=== PATIENT | female | born 1985 | race Two or more races ===

== ENCOUNTER 2024-05-06 01:06 | Inpatient (IN) | payer OTHER ==
[2024-05-06] VITALS (31 sets, daily range): BP systolic 83–153; BP diastolic 38–99; PULSE 90–124; RESP 16–27; TEMP 98.2–100.2; O2SAT 97–100
[~2024-05-06] VITALS: Ht 162.6 cm; Wt 64.0 kg
--- NOTE | 2024-05-06 01:20 | ED.PDOC ---
History of present illness HPI Comments 39 year old female brought in by EMS presents to the ED with a chief complaint of hyperglycemia onset 2 days. Per EMS, patient's family called EMS due to knowing patient has "problem with her blood sugar" but were unsure if it was low or high. Upon EMS arrival patient's BS was 600, BP was 74 systolic. Patient states she has been experiencing nausea/vomiting for the past 2 days, loss of appetite and increased thirst, and has not taken her DM medication. PMHx DM and denies chest pain, shortness of breath, diarrhea, constipation, headache, dizziness, blurry vision. No other symptoms or modifying factors present at this time. 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 Family History Family History: Unknown Social History Smoker: Non-Smoker Alcohol: Denies ETOH Use Drugs: Denies Drug Use Lives In: Home Constitutional: denies: chills, diaphoresis, fatigue, fever, malaise, sweats, weakness, others EENTM: denies: blurred vision, double vision, ear bleeding, ear discharge, ear drainage, ear pain, ear ringing, eye pain, eye redness, hearing loss, mouth pain, mouth swelling, nasal discharge, nose bleeding, nose congestion, nose pain, photophobia, tearing, throat pain, throat swelling, voice changes, others Respiratory: denies: cough, hemoptysis, orthopnea, SOB at rest, shortness of breath, SOB with excertion, stridor, wheezing, others Cardiovascular: denies: chest pain, dizzy spells, diaphoresis, Dyspnea on exertion, edema, irregular heart beat, left arm pain, lightheadedness, palpitations, PND, syncope, others Gastrointestinal: reports: nausea, vomiting; denies: abdomen distended, abdominal pain, blood streaked bowels, constipated, diarrhea, dysphagia, difficulty swallowing, hematemesis, melena, poor appetite, poor fluid intake, rectal bleeding, rectal pain, others Genitourinary: denies: abnormal vagina bleeding, burning, dyspareunia, dysuria, flank pain, frequency, hematuria, incontinence, pain, , vagina discharge, urgency, others Neurological: denies: dizziness, fainting, headache, left sided numbness, left sided weakness, numbness, paresthesia, pre-existing deficit, right sided numbness, right sided weakness, seizure, speech problems, tingling, tremors, weakness, others Musculoskeletal: denies: back pain, gout, joint pain, joint swelling, muscle pa in, muscle stiffness, neck pain, others Integumetry: denies: bruises, change in color, change in hair/nails, dryness, laceration, lesions, lumps, rash, wounds, others Allergic/Immunocompromised: denies: Difficulty Healing, Frequent Infections, Hives, Itching, others Hematologic/Lymphatic: denies: anemia, blood clots, easy bleeding, easy bruising, swollen glands, others Endocrine: reports: excessive thirst; denies: excessive hunger, excessive sweating, excessive urination, flushing, intolerance to cold, intolerance to heat, unexplained weight gain, unexplained weight loss, others Psychiatric: denies: anxiety, bipolar disorder, depression, hopeless, panic disorder, schizophrenia, sleepless, suicidal, others All Other Systems: Reviewed and Negative Physical Exam General Appearance: No Apparent Distress, Normal HEENT: Normal ENT Inspection, Pharynx Normal, TMs Normal Neck: Full Range of Motion, Non-Tender, Normal, Normal Inspection Respiratory: Chest Non-Tender, Lungs Clear, No Accessory Muscle Use, No Respiratory Distress, Normal Breath Sounds Cardiovascular: No Edema, No JVD, No Murmur, No Gallop, Normal Peripheral Pu lses, Regular Rate/Rhythm Breast Exam: Deferred Gastrointestinal: No Organomegaly, Non Tender, No Pulsatile Mass, Normal Bowel Sounds, Soft Genitalia: Deferred Pelvic: Deferred Rectal: Deferred Extremities: No calf tenderness, Normal capillary refill, Normal inspection, Normal range of motion, Non-tender, No pedal edema Musculoskeletal : Apperance: Normal Neurologic: Alert, sdet II-XII nml as Tested, No Motor Deficits, Normal Affect, Normal Mood, No Sensory Deficits Cerebellar Function: Normal Reflexes: Normal Skin: Dry, Normal Color, Warm Lymphatic: No Adenopathy Was a procedure done? 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 Occupation of last inserter: Attending Physician Indication: Hypotension, Volume resuscitation Room prepared for procedure: Yes Truck Supervisor performed hand hygien: Yes Maximal sterile barrier precau: Mask/Eye shield, Sterlie gloves, Large sterlie drape Skin Preparation: Chlorhexidine gluconate Skin preparation completely dr: Yes Insertion site: Right, Femoral Central line catheter type: Oik-[id number]-swc dialysis Number of lumens: 3 Central line exchanged over a: Yes Antiseptic ointment applied to: Yes Post Assessment: Proper placement Informed consent obtained: No Risks/benefits/alt described: No Intubation Indication: Altered Mental Status Prep: Preoxygenation Pretreated with: Other (Etomidate) Medicated with: Other (Rocuronium) Intubation Approach: Orotracheal Intubation size: cm (8) Informed consent obtained: No Risks/benefits/alt described: No Differential Diagnosis (DM) Differential Diagnosis: Dehydration, DKA, Encephalopathy, Hyperglycemia, Hyperosmolar State X-Ray, Labs, Meds, VS Vital Signs Date Time Temp Pulse Resp B/P (MAP) Pulse Ox O2 Delivery O2 Flow Rate FiO2 05/06/24 02:55 103 16 100 80 05/06/24 01:33 96.3 90 19 71/36 (48) 98 96.3 05/06/24 01:33 90 19 98 Room Air* 0 21 05/06/24 01:20 76 05/06/24 01:13 97.6 87 22 74/42 (53) 97 05/06/24 01:09 91 Lab Test 05/06/24 01:26 05/06/24 01:25 Range/Units White Blood Count 13.3 H 4.4-10.8 10^3/uL Red Blood Count 3.60 L 4.0-5.20 10^6/uL Hemoglobin 9.7 L 12.2-16.2 g/dL Hematocrit 32.8 L 36.0-46.0 % Mean Corpuscular Volume 91.2 80.0-100.0 fL Mean Corpuscular Hemoglobin 26.9 L 28.0-32.0 pg Mean Corpuscular Hemoglobin Concent 29.5 L 32.0-36.0 g/dL Red Cell Distribution Width 14.8 H 11.8-14.3 % Platelet Count 334 140-450 10^3/uL Mean Platelet Volume 10.2 6.9-10.8 fL Neutrophils (%) (Auto) 77.7 37.0-80.0 % Lymphocytes (%) (Auto) 13.5 10.0-50.0 % Monocytes (%) (Auto) 8.0 0.0-12.0 % Eosinophils (%) (Auto) 0.0 0.0-7.0 % Basophils (%) (Auto) 0.8 0.0-2.0 % Neutrophils # (Auto) 10.3 H 1.6-8.6 10 ^3/uL Lymphocytes # (Auto) 1.8 0.4-5.4 10 ^3/uL Monocytes # (Auto) 1.1 0-1.3 10 ^3/uL Eosinophils # (Auto) 0 0-0.8 10 ^3/uL Basophils # (Auto) 0.1 0-0.2 10 ^3/uL Nucleated Red Blood Cells 0.0 % Sodium Level 110 *L 136-145 mmol/L Potassium Level 6.2 *H 3.5-5.1 mmol/L Chloride Level 77 L 98-107 mmol/L Carbon Dioxide Level < 10 *L 20-31 mmol/L Anion Gap 23.66193 H 5-15 Blood Urea Nitrogen 48 H 9-23 mg/dL Creatinine 4.14 H 0.550-1.02 mg/dL Glomerular Filtration Rate Calc 14 >90 mL/min BUN/Creatinine Ratio 11.6 10.0-20.0 Serum Glucose 1096 *H 74-106 mg/dL Lactic Acid Level 1.5 0.4-2.0 mmol/L Calcium Level 9.2 8.7-10.4 mg/dL Phosphorus Level 7.9 H 2.4-5.1 mg/dL Magnesium Level 2.3 1.6-2.6 mg/dL Total Bilirubin < 0.2 L 0.2-1.0 mg/dL Aspartate Amino Transferase (AST) 17 13-40 U/L Alanine Aminotransferase (ALT) 19 7-40 U/L Alkaline Phosphatase 149 H 46-116 U/L Total Protein 6.0 5.7-8.2 g/dL Albumin 3.5 3.2-4.8 g/dL Lipase 27 12-53 U/L Beta-Hydroxybutyric Acid > 4.500 H < 0.4 mmol/L Blood Gas Specimen Type Venous Blood Gas Sample Site Vbg - n/a Blood Gas Patient Temperature 37.0 Arterial Blood Date Drawn Tom Test N/a Venous Blood pH 7.054 *L 7.320-7.430 Venous Blood pCO2 at Patient Temp 15.4 L 38.0-54.0 mmHg Venous Blood pO2 at Patient Temp 48.7 H 23.0-48.0 mmHg Venous Blood HCO3 4.2 L 22.0-29.0 mmol/L Venous Blood Base Excess -24.2 L -2.0-3.0 mmol/L Blood Gas Modality Vbg - n/a FiO2 % 21.0 Specimen Drawn By Ying decker rn Blood Gas Critical Value Read Back Yes Blood Gas Notified Whom Priscilla kim md Blood Gas Notified Time Blood Gas Notified By Shahida segal Current Medications Medications (Trade) Dose Ordered Sig/Tera Route Start Time Stop Time Status Last Admin Sodium Chloride 1,000 ml @ 1,000 mls/hr Q1H ONCE IV 05/06/24 01:15 05/06/24 02:14 DC 05/06/24 01:32 Ondansetron HCl (Zofran) 4 mg ONCE ONCE IV 05/06/24 01:15 05/06/24 01:16 DC 05/06/24 01:41 Famotidine (Pepcid Injection) 20 mg ONCE ONCE IV 05/06/24 01:15 05/06/24 01:16 DC 05/06/24 01:41 Sodium Chloride 1,000 ml @ 1,000 mls/hr Q1H ONCE IV 05/06/24 01:45 05/06/24 02:44 DC 05/06/24 01:42 Lactated Ringer's 2,000 ml @ 1,000 mls/hr Q2H ONCE IV 05/06/24 02:15 05/06/24 04:14 05/06/24 02:28 Time of 1ST Reevaluation: 01:41 Reevaluation 1ST: Unchanged Patient Education/Counseling: Diagnosis, Treatment, Prognosis Family Education/Counseling: No Family Present Additional Information The following tests were ordered, and results were reviewed by me: CBC, CMP, BETA-HYDROXYBUTYRATE, LA W/ REFLEX, LIPASE, UA, XY CHEST, VBG Additional Information was gathered from interviewing the following independent historians: EMS I reviewed and agreed with the following test results read by other providers: XY CHEST I discussed treatment and results with medical personnel and patient Departure 1 Departure Time of Disposition: 03:10 (Patient was in DKA with metabolic encephalopathy. Patient was emergently intubated for altered mental status and airway protection. Central line was placed. Patient receiving large volume fluid re suscitation we will start patient on insulin drip.) Impression: Primary Impression: DKA (diabetic ketoacidosis) Qualified Codes: E11.11 - Type 2 diabetes mellitus with ketoacidosis with coma Additional Impressions: Metabolic encephalopathy Dehydration Disposition: ADMITTED INPATIENT Admit to: ICU Condition: Critical Critical Care Note Critical Care Time?: Yes Critical care comment: Acute DKA Authorized and Performed by: Grace Zaman MD Total critical care time: Approximately 48 minutes Due to a high probability of clinically significant, life threatening deterioration, the patient required my highest level of preparedness to intervene emergently and I personally spent this critical care time directly and personally managing the patient. This critical care time included obtaining a history; examining the patient; pulse oximetry; ordering and review of studies; arranging urgent treatment with development of a management plan; evaluation of patient's response to treatment; frequent reassessment; and, discussions with other providers. This critical care time was performed to assess and manage the high probability of imminent, life-threatening deterioration that could result in multi-organ failure. It was exclusive of separately billable procedures and treating other patients and teaching time. Please see my other sections and the rest of the note for further information on patient assessment and treatment. Stability Stability form required: No I personally scribed for GRACE ZAMAN MD ([email or web address]) on 05/06/24 at 01:20. Electronically submitted by Patricia Quezada ([email or web address]). I personally scribed for GRACE ZAMAN MD ([email or web address]) on 05/06/24 at 01:21. Electronically submitted by Patricia Quezada ([email or web address]). GRACE ZAMAN MD May 06, 2024 01:20
[2024-05-06] MEDS: SODIUM CHLORIDE 0.9% 1,000 ML IV ONE ×2 (01:32→01:42)
[2024-05-06] MEDS: ONDANSETRON HCL 4 MG/2 ML VIAL IV ONE (01:41)
[2024-05-06] MEDS: FAMOTIDINE (10MG/ML) 2ML VL IV ONE (01:41)
[2024-05-06 01:44] LABS: Basophils # (auto) 0.1 10 ^3/uL (0-0.2); Eosinophils # (auto) 0 10 ^3/uL (0-0.8)
[2024-05-06 01:46] LABS: Basophils % (auto) 0.8 % (0.0-2.0); Hematocrit 32.8 % (36.0-46.0); Hemoglobin 9.7 g/dL (12.2-16.2); Lymphocytes # (auto) 1.8 10 ^3/uL (0.4-5.4); Lymphocytes % (auto) 13.5 % (10.0-50.0); Mean Corpuscular Hemoglobin 26.9 pg (28.0-32.0); Mean Corpuscular Hgb Conc. 29.5 g/dL (32.0-36.0); Mean Corpuscular Volume 91.2 fL (80.0-100.0); Monocytes # (auto) 1.1 10 ^3/uL (0-1.3); Neutrophils # (auto) 10.3 10 ^3/uL (1.6-8.6); Neutrophils % (auto) 77.7 % (37.0-80.0); Platelet Count (auto) 334 10^3/uL (140-450); Red Cell Distribution Width 14.8 % (11.8-14.3); White Blood Cell 13.3 10^3/uL (4.4-10.8)
[2024-05-06 02:01] LABS: Alanine Aminotransferase 19 U/L (7-40); Albumin 3.5 g/dL (3.2-4.8); Anion Gap 23.00001 (5-15); Aspartate Aminotransferase 17 U/L (13-40); BUN/Creatinine Ratio 11.6 (10.0-20.0); Calcium 9.2 mg/dL (8.7-10.4); Lipase 27 U/L (12-53); Magnesium 2.3 mg/dL (1.6-2.6)
[2024-05-06 02:11] LABS: Chloride 77 mmol/L (98-107)
[2024-05-06 02:12] LABS: Alkaline Phosphatase 149 U/L (46-116); Blood Urea Nitrogen 48 mg/dL (9-23); Phosphorus 7.9 mg/dL (2.4-5.1); Sodium 110 mmol/L (136-145)
[2024-05-06 02:13] LABS: Bilirubin, Total < 0.2 mg/dL (0.2-1.0); Carbon Dioxide < 10 mmol/L (20-31); Glucose 1096 mg/dL (74-106); Potassium 6.2 mmol/L (3.5-5.1)
[2024-05-06] MEDS ORDERED: DEXTROSE (50%) 50ML SYRG IV PRN ×2 (02:15→03:30)
[2024-05-06] MEDS: NOREPINEPHRINE 8 MG/250ML KIT 250 ML IV ONE (02:22)
[2024-05-06] MEDS: LACTATED RINGER'S 2,000 ML IV ONE (02:28)
[2024-05-06] MEDS: ROCURONIUM 10MG/ML 10ML VIAL IV ONE ×2 (02:28→02:39)
[2024-05-06] MEDS: ETOMIDATE (2MG/ML) 20ML VIAL IV ONE ×2 (02:29→02:39)
[2024-05-06] MEDS: PROPOFOL 100 ML IV SCH (02:45)
[2024-05-06] MEDS ORDERED: ACETAMINOPHEN 325 MG TAB PO PRN (03:30)
[2024-05-06] MEDS ORDERED: NITROGLYCERIN 0.4 MG SL TAB SL PRN (03:30)
[2024-05-06] MEDS ORDERED: MORPHINE SULFATE INJ 2 MG/ml SYRG IV PRN (03:30)
--- NOTE | 2024-05-06 03:43 | DVH ---
Examination: CXRP Clinical Indication: S/P INTUBATION Comparison: None. Technique: Frontal radiographs of the chest were obtained. Findings: Lungs are clear and well expanded with no pulmonary infiltrate or pleural effusion. There is no pneumothorax. Endotracheal tube noted with its distal end located approximately 7.2 cm proximal to the oscar, need s advancement by at least approximately 3.5 cm. No evidence of cardiomegaly. Nasogastric tube noted with its distal end below left hemidiaphragm, possibly in stomach, however, th e tip is out of field of view. No acute osseous abnormality is seen. Impression: 1. No acute cardiopulmonary disease is seen. 2. Endotracheal tube noted with its distal end located approximately 7.2 cm proximal to the oscar, needs advancement by at least approximately 3.5 cm. 3. Nasogastric tube noted with its distal end below left hemidiaphragm, possibly in stomach, however , the tip is out of field of view. Electronically Signed 05/06/2024 03:42 Fifi Dallas
[2024-05-06] MEDS: INSULIN DRIP 100 UNIT/100ML 100 ML IV SCH ×4 (04:01→22:30)
--- NOTE | 2024-05-06 04:02 | DVHHP2 ---
History of Present Illness Reason for Visit: Hyperglycemia History of Present Illness 39-year-old female with a history of diabetes mellitus presents for evaluation of hyperglycemia. Patient was noted to be lethargic by family so EMS was called. On arrival patient's blood sugar was greater than 600 blood pressure in the 70s. Patient became progressively more confused in the emergency department requiring emergent intubation for airway protection. Past Medical History Diabetes mellitus Past Surgical History Unknown Family History Unknown Smoke: No ALCOHOL: none Drugs: None Lives: with Family Review of Systems Review of Systems Unable to complete review of systems patient is sedated and intubated. Allergies: Coded Allergies: NO KNOWN ALLERGIES (Unverified , 05/06/24) Medications Current Medications Medications Dose Ordered Sig/Tera Route Start Time Stop Time Status Last Admin Dose Admin Insulin Human (Reg)/Sodium Chloride 100 ml @ 0.5 mls/hr Q24H IV 05/06/24 02:30 Dextrose 50 ml UD PRN IV 05/06/24 02:15 Diagnostic Test (Pha) 1 strip Q90MIN 05/06/24 03:00 Insulin Glargine 15 units DAILY SC 05/07/24 10:00 Norepinephrine Bitartrate 250 ml @ 3.75 mls/hr Q24H IV 05/06/24 02:45 Propofol 100 ml @ 1.908 mls/ hr Q24H IV 05/06/24 02:45 Exam Vital Signs Vital Signs Date Time Temp Pulse Resp B/P (MAP) Pulse Ox O2 Delivery O2 Flow Rate FiO2 05/06/24 03:13 103 16 100 80 05/06/24 02:55 05/06/24 01:33 96.3 96.3 05/06/24 01:33 Room Air* 0 Exam Gen: 39-year-old female mild distress Skin: Warm, dry, normal color and texture, no rash. HEENT: Normocephalic atraumatic, mucous membranes moist and pink. Neck: Cervical and supraclavicular nodes normal without enlargement, trachea is midline, thyroid gland is normal without masses. Pulmonary: Intubated, diminished breath sounds Cardiac: Regular rate and rhythm. No murmur Abdomen: Soft, , nondistended, bowel sounds present all 4 quadrants, no guarding, no rigidity, no organomegaly. Extremities: No cyanosis, clubbing, no edema Neuro: Sedated Labs/Xrays Labs Test 05/06/24 01:26 05/06/24 01:25 Range/Units White Blood Count 13.3 H 4.4-10.8 10^3/uL Red Blood Count 3.60 L 4.0-5.20 10^6/uL Hemoglobin 9.7 L 12.2-16.2 g/dL Hematocrit 32.8 L 36.0-46.0 % Mean Corpuscular Volume 91.2 80.0-100.0 fL Mean Corpuscular Hemoglobin 26.9 L 28.0-32.0 pg Mean Corpuscular Hemoglobin Concent 29.5 L 32.0-36.0 g/dL Red Cell Distribution Width 14.8 H 11.8-14.3 % Platelet Count 334 140-450 10^3/uL Mean Platelet Volume 10.2 6.9-10.8 fL Neutrophils (%) (Auto) 77.7 37.0-80.0 % Lymphocytes (%) (Auto) 13.5 10.0-50.0 % Monocytes (%) (Auto) 8.0 0.0-12.0 % Eosinophils (%) (Auto) 0.0 0.0-7.0 % Basophils (%) (Auto) 0.8 0.0-2.0 % Neutrophils # (Auto) 10.3 H 1.6-8.6 10 ^3/uL Lymphocytes # (Auto) 1.8 0.4-5.4 10 ^3/uL Monocytes # (Auto) 1.1 0-1.3 10 ^3/uL Eosinophils # (Auto) 0 0-0.8 10 ^3/uL Basophils # (Auto) 0.1 0-0.2 10 ^3/uL Nucleated Red Blood Cells 0.0 % Sodium Level 110 *L 136-145 mmol/L Potassium Level 6.2 *H 3.5-5.1 mmol/L Chloride Level 77 L 98-107 mmol/L Carbon Dioxide Level < 10 *L 20-31 mmol/L Anion Gap 23.30102 H 5-15 Blood Urea Nitrogen 48 H 9-23 mg/dL Creatinine 4.14 H 0.550-1.02 mg/dL Glomerular Filtration Rate Calc 14 >90 mL/min BUN/Creatinine Ratio 11.6 10.0-20.0 Serum Glucose 1096 *H 74-106 mg/dL Lactic Acid Level 1.5 0.4-2.0 mmol/L Calcium Level 9.2 8.7-10.4 mg/dL Phosphorus Level 7.9 H 2.4-5.1 mg/dL Magnesium Level 2.3 1.6-2.6 mg/dL Total Bilirubin < 0.2 L 0.2-1.0 mg/dL Aspartate Amino Transferase (AST) 17 13-40 U/L Alanine Aminotransferase (ALT) 19 7-40 U/L Alkaline Phosphatase 149 H 46-116 U/L Total Protein 6.0 5.7-8.2 g/dL Albumin 3.5 3.2-4.8 g/dL Lipase 27 12-53 U/L Beta-Hydroxybutyric Acid > 4.500 H < 0.4 mmol/L Blood Gas Specimen Type Venous Blood Gas Sample Site Vbg - n/a Blood Gas Patient Temperature 37.0 Arterial Blood Date Drawn Tom Test N/a Venous Blood pH 7.054 *L 7.320-7.430 Venous Blood pCO2 at Patient Temp 15.4 L 38.0-54.0 mmHg Venous Blood pO2 at Patient Temp 48.7 H 23.0-48.0 mmHg Venous Blood HCO3 4.2 L 22.0-29.0 mmol/L Venous Blood Base Excess -24.2 L -2.0-3.0 mmol/L Blood Gas Modality Vbg - n/a FiO2 % 21.0 Specimen Drawn By Ying decker rn Blood Gas Critical Value Read Back Yes Blood Gas Notified Whom Priscilla kim md Blood Gas Notified Time Blood Gas Notified By Nursery Helper sienna segal Assessment/Plan Assessment/Plan Assessment Diabetic ketoacidosis Acute respiratory failure, intubated Severe dehydration Acute kidney injury Metabolic acidosis Plan Admit the patient to ICU to the hospitalist DKA protocol Monitor kidney function Continue treatment per orders Total critical care time excluding procedures performed 55 minutes Plan discussed with: Other My Orders Orders - [facility] Procedure Category Date Status Time Calcium Gluc PHA 05/06/24 In Process 1,000mg/50ml-Ns 03:30 Sodium Chloride 0.9% PHA 05/06/24 In Process 03:30 Sodium Chloride 0.9% PHA 05/06/24 In Process 09:30 Dextrose 50% Syringe PHA 05/06/24 In Process 03:30 Osmolality, Serum LAB 05/06/24 In Process 03:27 Admit ADMIT 05/06/24 Transmitted 03:27 Ondansetron Hcl PHA 05/06/24 In Process (Zofran) 03:30 Complete Blood Count LAB 05/07/24 Verified 04:00 Comprehensive LAB 05/07/24 Verified Metabolic Panel 04:00 Condition: Unstable PAT 05/06/24 In Process 03:27 Acetaminophen Tablet PHA 05/06/24 In Process (Tylenol Tablet) 03:30 Maintain Bed Rest PAT 05/06/24 In Process 03:27 Sequential PAT 05/06/24 In Process Compression Device Nitroglycerin PHA 05/06/24 In Process Sublingual (Ntrostat 03:30 Morphine Sulfate PHA 05/06/24 In Process Injection 03:30 Stat Ekg For Chest PAT 05/06/24 In Process Pain 03:27 Notify Of Changes PAT 05/06/24 In Process From Base 03:27 Lube Man For PAT 05/06/24 In Process 24 Hours 03:27 Emergency Dysrhythmia PAT 05/06/24 In Process Protocol 03:27 Rhythm Strips Once [facility] 05/06/24 In Process Every Shift 03:27 Oxygen By Nasal RT 05/06/24 Transmitted Cannula 03:27 Enoxaparin Sodium PHA 05/06/24 In Process (Lovenox) 10:00 Abg W/ Co-Ox RT 05/06/24 Logged 04:30 Date of Service: May 06, 2024 Billing Provider: JESSICA BOWEN Common Visit Codes: [id number] CARE 30-74 MIN JESSICA BOWEN May 06, 2024 04:02
[2024-05-06] MEDS: NOREPINEPHRINE 8 MG/250ML KIT 250 ML IV SCH (04:10)
[2024-05-06] MEDS: INSULIN LANTUS (GLARGINE) 1 /0.01ml (100units/ml) SC ONE (04:37)
[2024-05-06 04:40] LABS: Base Excess -29.7 mmol/L (-2.0-3.0)
[2024-05-06] MEDS: SODIUM CHLORIDE 0.9% 1,000 ML IV SCH ×2 (04:45→09:37)
[2024-05-06] MEDS: SODIUM BICARB 8.4% 50Meq/50ml SYR Vial IV ONE ×2 (04:45→06:42)
[2024-05-06] MEDS: CALCIUM GLUC 1,000mg/50ml-NS 50 ML IV ONE (04:45)
[2024-05-06] MEDS: ACCU-CHEK COMFORT CURVE STRIP VI SCH ×2 (05:21→07:30)
[2024-05-06] MEDS: fentaNYL Drip 2500mCg/250mlNS 250 ML IV SCH (06:25)
[2024-05-06] MEDS: fentaNYL Drip 2500mCg/250mlNS 250 ML IV ONE (06:35)
[2024-05-06 06:52] LABS: Anion Gap 21.00001 (5-15); Calcium 9.1 mg/dL (8.7-10.4)
[2024-05-06 06:57] LABS: BUN/Creatinine Ratio 10.6 (10.0-20.0)
[2024-05-06 06:59] LABS: Blood Urea Nitrogen 39 mg/dL (9-23); Chloride 87 mmol/L (98-107); Potassium 5.3 mmol/L (3.5-5.1)
[2024-05-06 07:01] LABS: Sodium 118 mmol/L (136-145)
[2024-05-06 07:02] LABS: Carbon Dioxide < 10 mmol/L (20-31)
[2024-05-06 07:08] LABS: Glucose 891 mg/dL (74-106)
[2024-05-06] MEDS ORDERED: ACETAMINOPHEN 650 MG RECT SUPP PR PRN (09:00)
[2024-05-06] MEDS: MIDAZOLAM DRIP 50 mg/50mL 50 ML IV SCH (09:05)
[2024-05-06] MEDS: SODIUM BICARB 50mEq/50ml Vial 100 ML in SOD CHL 0.45% 1,000 ML IV ONE (09:22)
[2024-05-06] MEDS: ENOXAPARIN SOD 30 MG/0.3 ML SYRINGE SC SCH (10:05)
[2024-05-06 10:38] LABS: Potassium 3.9 mmol/L (3.5-5.1)
[2024-05-06 10:39] LABS: Anion Gap 18 (5-15)
[2024-05-06 10:40] LABS: Calcium 9.1 mg/dL (8.7-10.4)
--- NOTE | 2024-05-06 10:43 | ECG ---
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
[2024-05-06 10:44] LABS: BUN/Creatinine Ratio 12.1 (10.0-20.0)
[2024-05-06 10:56] LABS: Blood Urea Nitrogen 44 mg/dL (9-23); Carbon Dioxide 15 mmol/L (20-31); Chloride 92 mmol/L (98-107); Sodium 125 mmol/L (136-145)
[2024-05-06 10:58] LABS: Glucose 687 mg/dL (74-106)
[2024-05-06 14:34] LABS: Anion Gap 13 (5-15); Chloride 99 mmol/L (98-107); Potassium 3.6 mmol/L (3.5-5.1)
[2024-05-06 14:40] LABS: BUN/Creatinine Ratio 13.7 (10.0-20.0)
[2024-05-06 14:48] LABS: Carbon Dioxide 19 mmol/L (20-31); Sodium 131 mmol/L (136-145)
[2024-05-06 14:49] LABS: Blood Urea Nitrogen 47 mg/dL (9-23); Calcium 8.6 mg/dL (8.7-10.4); Glucose 487 mg/dL (74-106)
[2024-05-06 15:11] LABS: Opiate Scree,Urine Pos (NEGATIVE)
[2024-05-06 15:15] LABS: Urine Bacteria FEW /hpf (None Seen); Urine Blood 2+ /uL (Negative); Urine Budding Yeast LOADED /hpf (None Seen); Urine Clarity Ex.Turbid (Clear); Urine Color Colorless (Yellow); Urine Mucus FEW (None Seen); Urine Protein, UAD 1+ (Negative); Urine Specific Gravity 1.001 (1.001-1.035); Urine Squamous Epithelial Cell FEW /hpf (<5); Urine Urobilinogen Normal (Negative); Urine WBC 1138 /HPF (0-5); Urine WBC Clumps PRESENT /hpf (None Seen); Urine pH 5.5 (5.0-9.0)
[2024-05-06 15:23] LABS: Amphetamine Screen, Urine Pos (NEGATIVE); Barbiturate Scree,Urine Neg (NEGATIVE); Benzodiazephine Screen, Urine Pos (NEGATIVE); Cannabinoid Screen, Urine Neg (NEGATIVE); Cocaine Screen, Urine Neg (NEGATIVE); Phencyclidine Screen, Urine Neg (NEGATIVE)
[2024-05-06] MEDS: LACTATED RINGER'S 1,000 ML IV ONE (16:06)
--- NOTE | 2024-05-06 16:11 | DVHPN2 ---
Subjective Chemically sedated Reviewed: Care Plan, H&P, Labs, Medications, Previous Orders Changes from previous H/P or p: No Changes General: Per HPI Objective Vitals Vital Signs Date Time Temp Pulse Resp B/P (MAP) Pulse Ox O2 Delivery O2 Flow Rate FiO2 05/06/24 15:49 109/68 05/06/24 14:21 106 16 100 40 05/06/24 12:15 97.8 97.8 05/06/24 08:00 Mechanical Ventilator+ 05/06/24 01:33 0 Intake/Output Intake and Output 05/06/24 07:00 Intake Total 50 ml Balance 50 ml Intake IV Total 50 ml General Appearance: Cooperative, moderate distress HEENT: Atraumatic, PERRLA Lungs: Clear to auscultation, Normal air movement, Other (mechanical ventilation) Cardiovascular: Normal S1, Normal S2 Abdomen: Normal bowel sounds, Soft, No tenderness Genitourinary: No Apparent Abnormalities (Grady catheter) Musculoskeletal: Normal sensory function, Normal motor function Neuro: Normal gait, Normal speech Psych/Mental Status: Mental status NL Medications Current Medications Medications Dose Ordered Sig/Tera Route Start Time Stop Time Status Last Admin Dose Admin Insulin Glargine 15 units DAILY SC 05/07/24 10:00 Norepinephrine Bitartrate 250 ml @ 3.75 mls/hr Q24H IV 05/06/24 02:45 05/06/24 04:10 3.75 MLS/HR Propofol 100 ml @ 1.908 mls/ hr Q24H IV 05/06/24 02:45 05/06/24 15:44 19.08 MLS/HR Sodium Chloride 1,000 ml @ 150 mls/hr Q6H40M IV 05/06/24 09:30 05/06/24 09:37 150 MLS/HR Ondansetron HCl 4 mg Q4HP PRN IV 05/06/24 03:30 Enoxaparin Sodium 30 mg DAILY SC 05/06/24 10:00 05/06/24 10:05 30 MG Acetaminophen 650 mg Q6HP PRN PO 05/06/24 03:30 Nitroglycerin 0.4 mg Q5MINP PRN SL 05/06/24 03:30 Morphine Sulfate 2 mg Q30M PRN IV 05/06/24 03:30 Albuterol 2.5 mg Q6HPRN PRN NEB 05/06/24 04:15 Fentanyl Citrate 250 ml @ 2.5 mls/hr Q24H IV 05/06/24 06:25 05/06/24 14:12 30 MLS/HR Diagnostic Test (Pha) 1 strip Q90MIN 05/06/24 07:30 05/06/24 15:00 1 STRIP Dextrose 50 ml PRN PRN IV 05/06/24 07:00 Acetaminophen 650 mg Q6HP PRN FL 05/06/24 09:00 UNV Midazolam HCl 50 ml @ 1 mls/hr Q24H IV 05/06/24 09:00 05/06/24 12:38 8 MLS/HR Insulin Human (Reg)/Sodium Chloride 100 ml @ 1 mls/hr Q24H IV 05/06/24 13:30 05/06/24 14:31 16 MLS/HR Laboratory Results Laboratory Tests 05/06/24 01:26 05/06/24 14:03 Chemistry Test 05/06/24 01:26 05/06/24 06:12 05/06/24 10:09 05/06/24 14:03 Albumin 3.5 g/dL (3.2-4.8) Calcium Level 9.2 mg/dL (8.7-10.4) 9.1 mg/dL (8.7-10.4) 9.1 mg/dL (8.7-10.4) 8.6 mg/dL (8.7-10.4) L Magnesium Level 2.3 mg/dL (1.6-2.6) Phosphorus Level 7.9 mg/dL (2.4-5.1) H Total Protein 6.0 g/dL (5.7-8.2) Lipid panel Test 05/06/24 01:26 Lipase 27 U/L (12-53) LFT Test 05/06/24 01:26 Alanine Aminotransferase (ALT) 19 U/L (7-40) Alkaline Phosphatase 149 U/L (46-116) H Aspartate Amino Transferase (AST) 17 U/L (13-40) Total Bilirubin < 0.2 mg/dL (0.2-1.0) L Urinalysis Test 05/06/24 14:28 Urine Color Colorless (Yellow) Urine Clarity Ex.turbid (Clear) Urine pH 5.5 (5.0-9.0) Urine Specific [place] 1.001 (1.001-1.035) Urine Protein 1+ (Negative) H Urine Ketones 1+ (Negative) H Urine Blood 2+ /uL (Negative) H Urine Nitrite Negative (Negative) Urine Bilirubin Negative (Negative) Urine Urobilinogen Normal mg/dL (Negative) Urine Leukocyte Esterase 3+ /uL (Negative) Urine RBC 771 /hpf (0 - 4) Urine WBC Clumps Present /hpf (None Seen) Urine Microscopic WBC 1138 /HPF (0-5) H Urine Squamous Epithelial Cells Few /hpf (<5) Urine Bacteria Few /hpf (None Seen) H Urine Mucus Few (None Seen) Urine Yeast (Budding) Loaded /hpf (None Seen) Urine Glucose 4+ mg/dL (Normal) H Blood Gas Results Test 05/06/24 01:25 05/06/24 04:33 FiO2 % 21.0 80.0 Arterial Blood pH 6.747 (7.350-7.450) Labs and/or images reviewed: Labs reviewed by me, Image(s) reviewed by me Assessment/Plan Assessment/Plan Impression: -diabetic ketoacidosis -acute respiratory failure with mechanical ventilation -acute kidney injury, vasomotor nephropathy -pseudo hyponatremia -sirs without organ dysfunction -diabetes mellitus Plan: -continue current ventilator settings -increased to insulin drip algorithm 3. -continue IV hydration, 1 L bolus of LR. -continue current sedation -serial BMP -electrolyte replacement as needed -repeat chest x-ray, labs, ABG in a.m. Critical care time spent with patient discussing and formulating plan of care: 40 minutes. This does not include time spent performing procedures. This medical document was created using an electronic medical record system with [employer] dictation system. Although this document has been carefully reviewed, there may still be some phonetic and typographical errors. These areas are purely typographical due to imperfections of the software programs, and do not reflect any compromise in the patient's medical care. 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
[2024-05-06 20:32] LABS: Chloride 106 mmol/L (98-107); Sodium 138 mmol/L (136-145)
[2024-05-06 20:33] LABS: Anion Gap 9 (5-15); Calcium 8.8 mg/dL (8.7-10.4); Carbon Dioxide 23 mmol/L (20-31)
[2024-05-06 20:38] LABS: BUN/Creatinine Ratio 10.6 (10.0-20.0)
[2024-05-06 20:45] LABS: Blood Urea Nitrogen 34 mg/dL (9-23); Glucose 179 mg/dL (74-106); Potassium 2.9 mmol/L (3.5-5.1)
[2024-05-06] MEDS: DEXTROSE (50%) 50ML SYRG IV PRN (22:35)
[2024-05-06 22:42] LABS: Base Excess -4.9 mmol/L (-2.0-3.0)
[2024-05-07] VITALS (69 sets, daily range): BP systolic 89–142; BP diastolic 49–97; PULSE 99–122; RESP 15–37; TEMP 97.7–100.2; O2SAT 92–100
[2024-05-07] MEDS: POTASSIUM CHL 20MEQ/100ML 100 ML IV SCH (00:05)
[2024-05-07] MEDS: MAGNESIUM SULFATE 1GM/100ML 100 ML IV ONE ×2 (00:06→10:06)
--- NOTE | 2024-05-07 05:22 | DVH ---
CHEST RADIOGRAPH Indication: Device placement Technique: Single frontal view of the chest was obtained Comparison: XY CHEST PORTABLE on DOS: 05/06/24 FINDINGS: Lines and Tubes: The endotracheal tube terminates 2.2 cm above the oscar. The enteric tube courses b elow the left hemidiaphragm and the tip extends outside the field of view. Lungs: Left basilar opacities. The right lung is clear. Pleura: No effusion. No pneumothorax. Cardiomediastinal contours: Unremarkable Bones: No acute osseous abnormality. IMPRESSION: 1. Left basilar opacities which may reflect atelectasis or pneumonia.
[2024-05-07 05:28] LABS: Basophils # (auto) 0 10 ^3/uL (0-0.2); Basophils % (auto) 0.4 % (0.0-2.0); Eosinophils # (auto) 0 10 ^3/uL (0-0.8); Eosinophils % (auto) 0.3 % (0.0-7.0); Hematocrit 30.1 % (36.0-46.0); Hemoglobin 10.3 g/dL (12.2-16.2); Lymphocytes # (auto) 0.6 10 ^3/uL (0.4-5.4); Lymphocytes % (auto) 5.3 % (10.0-50.0); Mean Corpuscular Hgb Conc. 34.1 g/dL (32.0-36.0); Mean Corpuscular Volume 79.1 fL (80.0-100.0); Monocytes # (auto) 1.5 10 ^3/uL (0-1.3); Monocytes % (auto) 13.3 % (0.0-12.0); Neutrophils # (auto) 9.4 10 ^3/uL (1.6-8.6); Neutrophils % (auto) 80.7 % (37.0-80.0); Platelet Count (auto) 328 10^3/uL (140-450); Red Cell Distribution Width 14.3 % (11.8-14.3); White Blood Cell 11.6 10^3/uL (4.4-10.8)
[2024-05-07 05:47] LABS: Alanine Aminotransferase 29 U/L (7-40); Anion Gap 7 (5-15); Aspartate Aminotransferase 35 U/L (13-40); BUN/Creatinine Ratio 13.3 (10.0-20.0); Carbon Dioxide 23 mmol/L (20-31); Glucose 103 mg/dL (74-106); Potassium 3.9 mmol/L (3.5-5.1); Sodium 141 mmol/L (136-145)
[2024-05-07 05:48] LABS: Albumin 2.8 g/dL (3.2-4.8); Alkaline Phosphatase 132 U/L (46-116); Bilirubin, Total 0.2 mg/dL (0.2-1.0); Blood Urea Nitrogen 34 mg/dL (9-23); Calcium 8.3 mg/dL (8.7-10.4); Chloride 111 mmol/L (98-107); Total Protein 4.8 g/dL (5.7-8.2)
[2024-05-07 06:11] LABS: Base Excess -6.3 mmol/L (-2.0-3.0)
[2024-05-07 08:59] LABS: Magnesium 1.6 mg/dL (1.6-2.6)
[2024-05-07 09:01] LABS: Phosphorus 2.2 mg/dL (2.4-5.1)
--- NOTE | 2024-05-07 09:30 | DVHPN2 ---
Subjective Chemically sedated Reviewed: Care Plan, H&P, Labs, Medications, Previous Orders Changes from previous H/P or p: No Changes General: Per HPI Objective Vitals Vital Signs Date Time Temp Pulse Resp B/P (MAP) Pulse Ox O2 Delivery O2 Flow Rate FiO2 05/07/24 09:00 118 16 108/76 (87) 100 30 05/07/24 07:00 99.9 99.9 05/07/24 02:45 Mechanical Ventilator+ 05/06/24 01:33 0 Intake/Output Intake and Output 05/07/24 07:00 Intake Total 5349.041 ml Output Total 3900 ml Balance 1449.041 ml Intake IV Total 5349.041 ml Output Urine Total 3900 ml General Appearance: Cooperative, moderate distress HEENT: Atraumatic, PERRLA Lungs: Clear to auscultation, Normal air movement, Other (mechanical ventilation) Cardiovascular: Normal S1, Normal S2 Abdomen: Normal bowel sounds, Soft, No tenderness Genitourinary: No Apparent Abnormalities (Grady catheter) Musculoskeletal: Normal sensory function, Normal motor function Neuro: Normal gait, Normal speech Skin: Dry, Intact Psych/Mental Status: Mental status NL Medications Current Medications Medications Dose Ordered Sig/Tera Route Start Time Stop Time Status Last Admin Dose Admin Insulin Glargine 15 units DAILY SC 05/07/24 10:00 Norepinephrine Bitartrate 250 ml @ 3.75 mls/hr Q24H IV 05/06/24 02:45 05/06/24 04:10 3.75 MLS/HR Propofol 100 ml @ 1.908 mls/ hr Q24H IV 05/06/24 02:45 05/06/24 15:44 19.08 MLS/HR Ondansetron HCl 4 mg Q4HP PRN IV 05/06/24 03:30 Enoxaparin Sodium 30 mg DAILY SC 05/06/24 10:00 05/06/24 10:05 30 MG Acetaminophen 650 mg Q6HP PRN PO 05/06/24 03:30 Nitroglycerin 0.4 mg Q5MINP PRN SL 05/06/24 03:30 Morphine Sulfate 2 mg Q30M PRN IV 05/06/24 03:30 Albuterol 2.5 mg Q6HPRN PRN NEB 05/06/24 04:15 Fentanyl Citrate 250 ml @ 2.5 mls/hr Q24H IV 05/06/24 06:25 05/07/24 02:06 17.5 MLS/HR Dextrose 50 ml PRN PRN IV 05/06/24 07:00 05/06/24 22:35 50 ML Acetaminophen 650 mg Q6HP PRN TN 05/06/24 09:00 UNV Midazolam HCl 50 ml @ 1 mls/hr Q24H IV 05/06/24 09:00 05/07/24 05:51 4 MLS/HR Diagnostic Test (Pha) 1 strip IQ4HR 05/07/24 12:00 Insulin Human Regular IQ4HR SC 05/07/24 12:00 Dextrose 50 ml UD PRN IV 05/07/24 08:30 Sodium Chloride 1,000 ml @ 100 mls/hr Q10H IV 05/07/24 08:30 Thiamine HCl 100 mg DAILY IV 05/07/24 10:00 Laboratory Results Laboratory Tests 05/07/24 05:12 Chemistry Test 05/06/24 10:09 05/06/24 14:03 05/06/24 19:16 05/07/24 05:12 Calcium Level 9.1 mg/dL (8.7-10.4) 8.6 mg/dL (8.7-10.4) L 8.8 mg/dL (8.7-10.4) 8.3 mg/dL (8.7-10.4) L Magnesium Level 1.5 mg/dL (1.6-2.6) L 1.6 mg/dL (1.6-2.6) Albumin 2.8 g/dL (3.2-4.8) L Phosphorus Level 2.2 mg/dL (2.4-5.1) L Total Protein 4.8 g/dL (5.7-8.2) L LFT Test 05/07/24 05:12 Alanine Aminotransferase (ALT) 29 U/L (7-40) Alkaline Phosphatase 132 U/L (46-116) H Aspartate Amino Transferase (AST) 35 U/L (13-40) Total Bilirubin 0.2 mg/dL (0.2-1.0) Urinalysis Test 05/06/24 14:28 Urine Color Colorless (Yellow) Urine Clarity Ex.turbid (Clear) Urine pH 5.5 (5.0-9.0) Urine Specific [place] 1.001 (1.001-1.035) Urine Protein 1+ (Negative) H Urine Ketones 1+ (Negative) H Urine Blood 2+ /uL (Negative) H Urine Nitrite Negative (Negative) Urine Bilirubin Negative (Negative) Urine Urobilinogen Normal mg/dL (Negative) Urine Leukocyte Esterase 3+ /uL (Negative) Urine RBC 771 /hpf (0 - 4) Urine WBC Clumps Present /hpf (None Seen) Urine Microscopic WBC 1138 /HPF (0-5) H Urine Squamous Epithelial Cells Few /hpf (<5) Urine Bacteria Few /hpf (None Seen) H Urine Mucus Few (None Seen) Urine Yeast (Budding) Loaded /hpf (None Seen) Urine Glucose 4+ mg/dL (Normal) H Blood Gas Results Test 05/06/24 22:33 05/07/24 06:00 Arterial Blood pH 7.330 (7.350-7.450) 7.329 (7.350-7.450) FiO2 % 30.0 30.0 Microbiology Microbiology Date/Time Source Procedure Growth Status 05/06/24 02:52 Trachea Gram Stain Pending Resulted 05/06/24 02:52 Trachea Respiratory Culture - Preliminary Resulted Labs and/or images reviewed: Labs reviewed by me Assessment/Plan Assessment/Plan Impression: -diabetic ketoacidosis -acute respiratory failure with mechanical ventilation -acute kidney injury, vasomotor nephropathy -pseudo hyponatremia -sirs without organ dysfunction -diabetes mellitus -Polysubstance abuse Plan: Events: Patient out of acidosis. Now on RISS with Lantus. CT head pending. -Start thiamine. -SBT after CT head -Change IVF to 0.45ns -continue current sedation -electrolyte replacement as needed -repeat chest x-ray, labs, ABG in a.m. Critical care time spent with patient discussing and formulating plan of care: 40 minutes. This does not include time spent performing procedures. This medical document was created using an electronic medical record system with [employer] system. Although this document has been carefully reviewed, there may still be some phonetic and typographical errors. These areas are purely typographical due to imperfections of the software programs, and do not reflect any compromise in the patient's medical care. 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 Procedure Category Date Status Time Chest Portable XY 05/07/24 Resulted 04:00 Abg W/ Co-Ox RT 05/07/24 Logged 05:43 Glucose Blood PHA 05/07/24 In Process (Accu-Chek Comfort 12:00 Insulin R (Human) PHA 05/07/24 In Process (Insulin R) 12:00 Dextrose 50% Syringe PHA 05/07/24 In Process 08:30 Sod Chl 0.45% (Sodium PHA 05/07/24 In Process Chloride 0.45% Via 08:30 Thiamine Inj PHA 05/07/24 In Process 10:00 Basic Metabolic Panel LAB 05/08/24 Verified 04:00 Complete Blood Count LAB 05/08/24 Verified 04:00 Date of Service: May 07, 2024 Billing Provider: REEMA KIRK NP Common Visit Codes: [id number] CARE 30-74 MIN REEMA KIRK NP May 07, 2024 09:30
--- NOTE | 2024-05-07 09:53 | DVH ---
EXAM: CT HEAD WITHOUT CONTRAST INDICATION: UNEQUAL AND FIXED PUPILS, NO COUGH, GAG TECHNIQUE: CT of the head without intravenous contrast. Coronal and sagittal reformatted images are submitted. Radiation Dose : 1. Head: CT Dose: CTDI volume is 49.21 mGy. Dose-length product is 789.02 mGy*cm The dose indicators for CT are the volume Computed Tomography (CT) Dose Index (CTDIvol) and the Dose Length Product (DLP), and are measured in units of mGy and mGy-cm, respectively. These indicators are not patient dose, but values generated from the CT scanner acquisition factors. The report includes radiation exposure data for exposures received during this examination. All CT scans at this medical facility are performed using dose modulation techniques as appropriate to a performed exam including the following: Automated exposure control was utilized; adjustment of the MA and/or KV according to patient size; and use of iterative reconstruction technique. COMPARISON: None FINDINGS: There is no evidence of acute intracranial hemorrhage, extra-axial collection, mass effect, midline s hift, herniation or hydrocephalus. The ventricles, sulci and cisterns are age appropriate. The deluna-white differentiation is intact. The mastoid air cells are clear. Mucosal thickening in the left maxillary sinus. No depressed calvarial fracture. The surrounding soft tissues are unremarkable. IMPRESSION: 1. No evidence of acute intracranial abnormality.
[2024-05-07] MEDS: SOD CHL 0.45% 1,000 ML IV SCH (10:07)
[2024-05-07] MEDS: THIAMINE 100mg/ml INJ (200mg/2ml VIAL) IV SCH (10:11)
[2024-05-07] MEDS: INSULIN LANTUS (GLARGINE) 1 /0.01ml (100units/ml) SC SCH (10:13)
--- NOTE | 2024-05-07 10:30 | DVHINCON2 ---
Date of service: May 07, 2024 Referring Physician Ivan Sanchez, nurse practitioner Reason for Consultation Acute kidney injury History of Present Illness Patient is 79-year-old female with past medical history of uncontrolled diabetes mellitus is admitted for generalized weakness, hypotension abdominal pain associated with nausea vomiting and blood sugar out of control. Patient intubated in the ER on the ventilator. On admission patient found to have elevated BUN creatinine nephrology is consulted for acute kidney injury Past Medical History PAST MEDICAL HISTORY: DM Past Surgical History Surgical History: Denies all surgeries Allergies: Coded Allergies: NO KNOWN ALLERGIES (Unverified , 05/06/24) Current Medications Current Medications Medications (Trade) Dose Ordered Sig/Tera Route PRN Reason Start Time Stop Time Status Last Admin Insulin Glargine (Lantus) 15 units DAILY SC 05/07/24 10:00 05/07/24 10:13 Insulin Human (Reg)/Sodium Chloride 100 ml @ 1 mls/hr Q24H IV 05/06/24 13:30 05/06/24 21:52 DC 05/06/24 14:31 Insulin Human (Reg)/Sodium Chloride 100 ml @ 0.5 mls/hr Q24H IV 05/06/24 22:00 05/07/24 08:33 DC Potassium Chloride 100 ml @ 50 mls/hr Q2H IV 05/06/24 23:30 05/07/24 03:29 DC 05/07/24 01:53 Diagnostic Test (Pha) (Accu-Chek Comfort Curve T) 1 strip IQ4HR 05/07/24 12:00 Insulin Human Regular (InsuLIN R) IQ4HR SC 05/07/24 12:00 Dextrose 50 ml UD PRN IV Blood Sugar LESS THAN 60 05/07/24 08:30 Sodium Chloride 1,000 ml @ 100 mls/hr Q10H IV 05/07/24 08:30 05/07/24 10:07 Thiamine HCl 100 mg DAILY IV 05/07/24 10:00 05/07/24 10:11 Ampicillin Sodium/ Sulbactam Sodium 3 gm/Sodium Chloride 100 ml @ 100 mls/hr Q12H IV 05/07/24 11:45 Review of Systems Can not be obtained H&P Exam Vital Signs/I&O Vital Sign Date Time Temp Pulse Resp B/P (MAP) Pulse Ox O2 Delivery O2 Flow Rate FiO2 05/07/24 11:17 109 17 97 Mechanical Ventilator+ 30 30 05/07/24 09:46 142/97 (112) 05/07/24 07:00 99.9 99.9 05/06/24 01:33 0 Intake and Output 05/06/24 05/07/24 19:00 07:00 Intake Total 2955 ml 2394.041 ml Output Total 2100 ml 1800 ml Balance 855 ml 594.041 ml Intake IV Total 2955 ml 2394.041 ml Output Urine Total 2100 ml 1800 ml Physical Exam Patient intubated on the ventilator Lungs clear to auscultation bilaterally Cardiac exam regular rate and rhythm GI soft nontender Grady catheter Extremities no clubbing cyanosis or edema Neuro patient is sedate Labs/Diagnostic Data Labs/Diagnostic Data Laboratory Tests Test 05/07/24 11:27 05/07/24 10:38 05/07/24 10:01 05/07/24 06:00 Range/Units POC Glucose 148 H 128 H 95 70-106 mg/dl Urine Osmolality 255 mOsm/kg Urine Creatinine 29.62 L 30.0-125.0 mg/dL Urine Protein/Creatinine Ratio 2.31 Urine Sodium 48 40-220 mmol/L Urine Total Protein 68.3 H 1-14 mg/dL Blood Gas Specimen Type Arterial Blood Gas Sample Site Right radial Blood Gas Patient Temperature 37.0 Arterial Blood Date Drawn [id number] Arterial Blood pH 7.329 L 7.350-7.450 Arterial Blood Partial Pressure CO2 36.9 32.0-45.0 mmHg Arterial Blood Partial Pressure O2 88.6 83.0-108.0 mmHg Arterial Blood HCO3 19.0 L 21.0-28.0 mmol/L Arterial Blood Oxygen Saturation 96.2 94.0-98.0 % Arterial Blood Base Excess -6.3 L -2.0-3.0 mmol/L Arterial Blood Oxyhemoglobin 95.1 94.0-98.0 % Arterial Blood Carboxyhemoglobin 0.6 0.5-1.5 % Arterial Blood Methemoglobin 0.5 0.0-1.5 % Tom Test Modified Blood Gas Total Hemoglobin 10.90 L 12.0-16.0 g/dL Blood Gas Set Respiration Rate 16.0 Blood Gas Modality Vent - ac FiO2 % 30.0 Blood Gas Tidal Volume 400.0 Blood Gas PEEP or CPAP 5.0 Test 05/07/24 05:12 05/07/24 04:29 05/07/24 03:41 05/07/24 01:25 Range/Units White Blood Count 11.6 H 4.4-10.8 10^3/uL Red Blood Count 3.80 L 4.0-5.20 10^6/uL Hemoglobin 10.3 L 12.2-16.2 g/dL Hematocrit 30.1 L 36.0-46.0 % Mean Corpuscular Volume 79.1 #L 80.0-100.0 fL Mean Corpuscular Hemoglobin 27.0 L 28.0-32.0 pg Mean Corpuscular Hemoglobin Concent 34.1 32.0-36.0 g/dL Red Cell Distribution Width 14.3 11.8-14.3 % Platelet Count 328 140-450 10^3/uL Mean Platelet Volume 8.5 6.9-10.8 fL Neutrophils (%) (Auto) 80.7 H 37.0-80.0 % Lymphocytes (%) (Auto) 5.3 L 10.0-50.0 % Monocytes (%) (Auto) 13.3 H 0.0-12.0 % Eosinophils (%) (Auto) 0.3 0.0-7.0 % Basophils (%) (Auto) 0.4 0.0-2.0 % Neutrophils # (Auto) 9.4 H 1.6-8.6 10 ^3/uL Lymphocytes # (Auto) 0.6 0.4-5.4 10 ^3/uL Monocytes # (Auto) 1.5 H 0-1.3 10 ^3/uL Eosinophils # (Auto) 0 0-0.8 10 ^3/uL Basophils # (Auto) 0 0-0.2 10 ^3/uL Nucleated Red Blood Cells 0.0 % Sodium Level 141 136-145 mmol/L Potassium Level 3.9 3.5-5.1 mmol/L Chloride Level 111 H 98-107 mmol/L Carbon Dioxide Level 23 20-31 mmol/L Anion Gap 7 5-15 Blood Urea Nitrogen 34 H 9-23 mg/dL Creatinine 2.55 H 0.550-1.02 mg/dL Glomerular Filtration Rate Calc 24 >90 mL/min BUN/Creatinine Ratio 13.3 10.0-20.0 Serum Glucose 103 74-106 mg/dL Calcium Level 8.3 L 8.7-10.4 mg/dL Phosphorus Level 2.2 L 2.4-5.1 mg/dL Magnesium Level 1.6 1.6-2.6 mg/dL Total Bilirubin 0.2 0.2-1.0 mg/dL Aspartate Amino Transferase (AST) 35 13-40 U/L Alanine Aminotransferase (ALT) 29 7-40 U/L Alkaline Phosphatase 132 H 46-116 U/L Total Protein 4.8 L 5.7-8.2 g/dL Albumin 2.8 L 3.2-4.8 g/dL POC Glucose 84 89 106 70-106 mg/dl Test 05/07/24 00:02 05/06/24 22:55 05/06/24 22:33 05/06/24 22:31 Range/Units POC Glucose 102 134 H 33 *L 70-106 mg/dl Blood Gas Specimen Type Arterial Blood Gas Sample Site Right radial Blood Gas Patient Temperature 37.0 Arterial Blood Date Drawn [id number] Arterial Blood pH 7.330 L 7.350-7.450 Arterial Blood Partial Pressure CO2 40.1 32.0-45.0 mmHg Arterial Blood Partial Pressure O2 68.5 L 83.0-108.0 mmHg Arterial Blood HCO3 20.7 L 21.0-28.0 mmol/L Arterial Blood Oxygen Saturation 93.1 L 94.0-98.0 % Arterial Blood Base Excess -4.9 L -2.0-3.0 mmol/L Arterial Blood Oxyhemoglobin 91.9 L 94.0-98.0 % Arterial Blood Carboxyhemoglobin 0.7 0.5-1.5 % Arterial Blood Methemoglobin 0.6 0.0-1.5 % Tom Test Modified Blood Gas Total Hemoglobin 10.50 L 12.0-16.0 g/dL Blood Gas Set Respiration Rate 16.0 Blood Gas Modality Vent - ac Blood Gas Spontaneous Rate 17 FiO2 % 30.0 Blood Gas Tidal Volume 400.0 Blood Gas Spontaneous Tidal Volume 404 Blood Gas Inspiratory Pressure 15.0 Blood Gas PEEP or CPAP 5.0 Bl Gas Inspiratory/Expiratory Ratio 1:3 Test 05/06/24 21:32 05/06/24 19:31 05/06/24 19:16 05/06/24 16:38 Range/Units POC Glucose 80 194 H 326 H 70-106 mg/dl Sodium Level 138 # 136-145 mmol/L Potassium Level 2.9 L 3.5-5.1 mmol/L Chloride Level 106 98-107 mmol/L Carbon Dioxide Level 23 20-31 mmol/L Anion Gap 9 5-15 Blood Urea Nitrogen 34 #H 9-23 mg/dL Creatinine 3.20 H 0.550-1.02 mg/dL Glomerular Filtration Rate Calc 18 >90 mL/min BUN/Creatinine Ratio 10.6 10.0-20.0 Serum Glucose 179 H 74-106 mg/dL Calcium Level 8.8 8.7-10.4 mg/dL Magnesium Level 1.5 L 1.6-2.6 mg/dL Test 05/06/24 15:05 05/06/24 14:28 05/06/24 14:03 05/06/24 13:33 Range/Units POC Glucose 468 *H 433 *H 70-106 mg/dl Urine Color Colorless Yellow Urine Clarity Ex.turbid Clear Urine pH 5.5 5.0-9.0 Urine Specific [place] 1.001 1.001-1.035 Urine Protein 1+ H Negative Urine Ketones 1+ H Negative Urine Blood 2+ H Negative /uL Urine Nitrite Negative Negative Urine Bilirubin Negative Negative Urine Urobilinogen Normal Negative mg/dL Urine Leukocyte Esterase 3+ Negative /uL Urine RBC 771 0 - 4 /hpf Urine WBC Clumps Present None Seen /hpf Urine Microscopic WBC 1138 H 0-5 /HPF Urine Squamous Epithelial Cells Few <5 /hpf Urine Bacteria Few H None Seen /hpf Urine Mucus Few None Seen Urine Yeast (Budding) Loaded None Seen /hpf Urine Glucose 4+ H Normal mg/dL Urine Opiates Screen Pos NEGATIVE Urine Fentanyl Screen Pos NEGATIVE Urine Barbiturates Screen Neg NEGATIVE Urine Phencyclidine Screen Neg NEGATIVE Urine Amphetamines Screen Pos NEGATIVE Urine Benzodiazepines Screen Pos NEGATIVE Urine Cocaine Screen Neg NEGATIVE Urine Cannabinoids Screen Neg NEGATIVE Sodium Level 131 #L 136-145 mmol/L Potassium Level 3.6 3.5-5.1 mmol/L Chloride Level 99 98-107 mmol/L Carbon Dioxide Level 19 L 20-31 mmol/L Anion Gap 13 5-15 Blood Urea Nitrogen 47 H 9-23 mg/dL Creatinine 3.44 H 0.550-1.02 mg/dL Glomerular Filtration Rate Calc 17 >90 mL/min BUN/Creatinine Ratio 13.7 10.0-20.0 Serum Glucose 487 *H 74-106 mg/dL Calcium Level 8.6 L 8.7-10.4 mg/dL Test 05/06/24 12:00 05/06/24 10:42 05/06/24 10:09 05/06/24 06:41 Range/Units POC Glucose 570 *H > 600 *H > 600 *H 70-106 mg/dl Sodium Level 125 #L 136-145 mmol/L Potassium Level 3.9 3.5-5.1 mmol/L Chloride Level 92 L 98-107 mmol/L Carbon Dioxide Level 15 L 20-31 mmol/L Anion Gap 18 H 5-15 Blood Urea Nitrogen 44 H 9-23 mg/dL Creatinine 3.64 H 0.550-1.02 mg/dL Glomerular Filtration Rate Calc 16 >90 mL/min BUN/Creatinine Ratio 12.1 10.0-20.0 Serum Glucose 687 *H 74-106 mg/dL Calcium Level 9.1 8.7-10.4 mg/dL Test 05/06/24 06:12 05/06/24 05:19 05/06/24 05:16 05/06/24 04:33 Range/Units Sodium Level 118 #*L 136-145 mmol/L Potassium Level 5.3 H 3.5-5.1 mmol/L Chloride Level 87 #L 98-107 mmol/L Carbon Dioxide Level < 10 *L 20-31 mmol/L Anion Gap 21.33247 H 5-15 Blood Urea Nitrogen 39 H 9-23 mg/dL Creatinine 3.69 H 0.550-1.02 mg/dL Glomerular Filtration Rate Calc 16 >90 mL/min BUN/Creatinine Ratio 10.6 10.0-20.0 Serum Glucose 891 *H 74-106 mg/dL Calcium Level 9.1 8.7-10.4 mg/dL POC Glucose > 600 *H > 600 *H 70-106 mg/dl Blood Gas Specimen Type Arterial Blood Gas Sample Site Right brachial Blood Gas Patient Temperature 34.0 Arterial Blood Date Drawn [id number] Arterial Blood pH 6.747 *L 7.350-7.450 Arterial Blood Partial Pressure CO2 39.0 32.0-45.0 mmHg Arterial Blood Partial Pressure O2 399.0 *H 83.0-108.0 mmHg Arterial Blood HCO3 5.3 L 21.0-28.0 mmol/L Arterial Blood Oxygen Saturation 99.7 H 94.0-98.0 % Arterial Blood Base Excess -29.7 L -2.0-3.0 mmol/L Arterial Blood Oxyhemoglobin 98.9 H 94.0-98.0 % Arterial Blood Carboxyhemoglobin 0.2 L 0.5-1.5 % Arterial Blood Methemoglobin 0.6 0.0-1.5 % Tom Test N/a Blood Gas Total Hemoglobin 11.70 L 12.0-16.0 g/dL Blood Gas Set Respiration Rate 16.0 Blood Gas Modality Vent - ac FiO2 % 80.0 Blood Gas Tidal Volume 400.0 Blood Gas PEEP or CPAP 5.0 Blood Gas Critical Value Read Back Yes Blood Gas Notified Whom Krish be md Blood Gas Notified Time [id number] Blood Gas Notified By Belt Back Operator sienna segal Test 05/06/24 03:49 05/06/24 01:26 05/06/24 01:25 Range/Units POC Glucose > 600 *H 70-106 mg/dl White Blood Count 13.3 H 4.4-10.8 10^3/uL Red Blood Count 3.60 L 4.0-5.20 10^6/uL Hemoglobin 9.7 L 12.2-16.2 g/dL Hematocrit 32.8 L 36.0-46.0 % Mean Corpuscular Volume 91.2 80.0-100.0 fL Mean Corpuscular Hemoglobin 26.9 L 28.0-32.0 pg Mean Corpuscular Hemoglobin Concent 29.5 L 32.0-36.0 g/dL Red Cell Distribution Width 14.8 H 11.8-14.3 % Platelet Count 334 140-450 10^3/uL Mean Platelet Volume 10.2 6.9-10.8 fL Neutrophils (%) (Auto) 77.7 37.0-80.0 % Lymphocytes (%) (Auto) 13.5 10.0-50.0 % Monocytes (%) (Auto) 8.0 0.0-12.0 % Eosinophils (%) (Auto) 0.0 0.0-7.0 % Basophils (%) (Auto) 0.8 0.0-2.0 % Neutrophils # (Auto) 10.3 H 1.6-8.6 10 ^3/uL Lymphocytes # (Auto) 1.8 0.4-5.4 10 ^3/uL Monocytes # (Auto) 1.1 0-1.3 10 ^3/uL Eosinophils # (Auto) 0 0-0.8 10 ^3/uL Basophils # (Auto) 0.1 0-0.2 10 ^3/uL Nucleated Red Blood Cells 0.0 % Sodium Level 110 *L 136-145 mmol/L Potassium Level 6.2 *H 3.5-5.1 mmol/L Chloride Level 77 L 98-107 mmol/L Carbon Dioxide Level < 10 *L 20-31 mmol/L Anion Gap 23.15877 H 5-15 Blood Urea Nitrogen 48 H 9-23 mg/dL Creatinine 4.14 H 0.550-1.02 mg/dL Glomerular Filtration Rate Calc 14 >90 mL/min BUN/Creatinine Ratio 11.6 10.0-20.0 Serum Glucose 1096 *H 74-106 mg/dL Serum Osmolality 333 H 278-298 mOsm/kg Lactic Acid Level 1.5 0.4-2.0 mmol/L Calcium Level 9.2 8.7-10.4 mg/dL Phosphorus Level 7.9 H 2.4-5.1 mg/dL Magnesium Level 2.3 1.6-2.6 mg/dL Total Bilirubin < 0.2 L 0.2-1.0 mg/dL Aspartate Amino Transferase (AST) 17 13-40 U/L Alanine Aminotransferase (ALT) 19 7-40 U/L Alkaline Phosphatase 149 H 46-116 U/L Total Protein 6.0 5.7-8.2 g/dL Albumin 3.5 3.2-4.8 g/dL Lipase 27 12-53 U/L Beta-Hydroxybutyric Acid > 4.500 H < 0.4 mmol/L Blood Gas Specimen Type Venous Blood Gas Sample Site Vbg - n/a Blood Gas Patient Temperature 37.0 Arterial Blood Date Drawn [id number] Tom Test N/a Venous Blood pH 7.054 *L 7.320-7.430 Venous Blood pCO2 at Patient Temp 15.4 L 38.0-54.0 mmHg Venous Blood pO2 at Patient Temp 48.7 H 23.0-48.0 mmHg Venous Blood HCO3 4.2 L 22.0-29.0 mmol/L Venous Blood Base Excess -24.2 L -2.0-3.0 mmol/L Blood Gas Modality Vbg - n/a FiO2 % 21.0 Specimen Drawn By Ying decker rn Blood Gas Critical Value Read Back Yes Blood Gas Notified Whom Priscilla kim md Blood Gas Notified Time [id number] Blood Gas Notified By Belt Back Operator t philipp Assessment Acute kidney injury superimposed Chronic Kidney Disease secondary hemodynamic mediated Acute respiratory failure, patient intubated on ventilator Diabetic ketoacidosis Sepsis Urinary tract infection Pneumonia Hypoalbuminemia Polysubstance abuse Anemia of chronic kidney disease Hypomagnesemia Hypophosphatemia Recommendations Closely monitor fluid and electrolytes Avoid nephrotoxic medications Grady catheter Strict I&Os I agree with IV fluid hydration Albumin 25% IV piggyback K-Phos IV piggyback Magnesium sulfate IV piggyback Insulin sliding scale IV antibiotic We will continue to follow Patient seen and examined by myself in the ER. I discussed my plan of care with the primary nurse at the bedside I would like to thank Ivan for the consult, will follow up Plan discussed with: Other (Nurse) STACIE RENAE MD May 07, 2024 10:30
--- NOTE | 2024-05-07 10:58 | DVH ---
RENAL ULTRASOUND CLINICAL HISTORY: luh TECHNIQUE: Multiple ultrasound images of the kidneys and bladder were obtained. COMPARISON: None FINDINGS: The right kidney measures 8.6 cm in length. The left kidney measures 8.8 cm. Both kidneys appear smal l in size. There is no sonographic evidence of nephrolithiasis or hydronephrosis. There is a Grady catheter in the bladder which is decompressed. IMPRESSION: 1. Both kidneys appear small in size. There is no sonographic evidence of nephrolithiasis or hydronep hrosis. HS:Y
[2024-05-07 11:20] LABS: Protein, Urine 68.3 mg/dL (1-14)
[2024-05-07 11:23] LABS: Creatinine, Urine 29.62 mg/dL (30.0-125.0); Urine Protein/Creatinine Ratio 2.31
[2024-05-07] MEDS: ACCU-CHEK COMFORT CURVE STRIP VI SCH (12:00)
[2024-05-07] MEDS: InsuLIN REG 1unit/0.01ml Soln (100units/ml) SC SCH (13:10)
[2024-05-07] MEDS: AMPICILLIN & SULBACTAM SODIUM 3 GM in SODIUM CHL 0.9% 100 ML IV SCH (13:31)
[2024-05-07 13:58] LABS: Phosphorus 3.3 mg/dL (2.4-5.1)
[2024-05-08] VITALS (77 sets, daily range): BP systolic 86–132; BP diastolic 52–92; PULSE 90–107; RESP 12–20; TEMP 97.9–99.1; O2SAT 96–100
[2024-05-08] MEDS: D5W/SOD CHL 0.45% 1,000 ML IV SCH (00:30)
[2024-05-08 05:40] LABS: Hematocrit 28.1 % (36.0-46.0); Hemoglobin 9.3 g/dL (12.2-16.2); Mean Corpuscular Hgb Conc. 33.2 g/dL (32.0-36.0); Mean Corpuscular Volume 81.2 fL (80.0-100.0); Platelet Count (auto) 267 10^3/uL (140-450); Red Blood Cells 3.46 10^6/uL (4.0-5.20); Red Cell Distribution Width 15.1 % (11.8-14.3); White Blood Cell 17.2 10^3/uL (4.4-10.8)
[2024-05-08 05:49] LABS: Anion Gap 7 (5-15); Carbon Dioxide 22 mmol/L (20-31); Potassium 3.9 mmol/L (3.5-5.1); Sodium 141 mmol/L (136-145)
[2024-05-08 05:52] LABS: Basophils % (manual) 0 (0.0-2.0); Blast Cells 0; Eosinophils % (manual) 0 (0-7); Metamyelocytes % 0; Myelocytes % 0; Promyelocytes % 0; Reactive Lymphocytes 0
[2024-05-08 05:55] LABS: BUN/Creatinine Ratio 14.1 (10.0-20.0); Blood Urea Nitrogen 30 mg/dL (9-23); Chloride 112 mmol/L (98-107); Glucose 128 mg/dL (74-106)
[2024-05-08 06:30] LABS: Band Neutrophils % (manual) 23; Lymphocytes % (manual) 12 (10.0-50.0); Monocytes % (manual) 3 (0-12)
[2024-05-08 06:31] LABS: Platelet Estimate Adequate
[2024-05-08 08:32] LABS: Base Excess -4.9 mmol/L (-2.0-3.0)
--- NOTE | 2024-05-08 11:29 | DVHPN2 ---
Progress Note Date Seen: May 08, 2024 Medical Necessity Reason Pt with a Central, PICC or Fol: No Subjective Review of Systems: RESPIRATORY:Abnormal Other Systems: Patient seen and examined by myself today in follow-up, patient remained intubated on ventilator Objective vital signs Vital Sign Date Time Temp Pulse Resp B/P (MAP) Pulse Ox O2 Delivery O2 Flow Rate FiO2 05/08/24 10:27 100 Mechanical Ventilator+ 40 40 05/08/24 10:27 102 17 101/65 (77) 05/08/24 10:27 40.0 05/08/24 08:00 98.8 98.8 Total Intake and Output 05/07/24 05/07/24 05/08/24 15:00 23:00 07:00 Intake Total 984.0 ml 1001.25 ml 887.50 ml Output Total 1050 ml 1900 ml Balance 984.0 ml -48.75 ml -1012.50 ml medications Current Medications Medications Dose Ordered Sig/Tera Route Start Time Stop Time Status Last Admin Dose Admin Insulin Glargine 15 units DAILY SC 05/07/24 10:00 05/08/24 09:29 15 UNITS Norepinephrine Bitartrate 250 ml @ 3.75 mls/hr Q24H IV 05/06/24 02:45 05/06/24 04:10 3.75 MLS/HR Propofol 100 ml @ 1.908 mls/ hr Q24H IV 05/06/24 02:45 05/06/24 15:44 19.08 MLS/HR Ondansetron HCl 4 mg Q4HP PRN IV 05/06/24 03:30 Enoxaparin Sodium 30 mg DAILY SC 05/06/24 10:00 05/08/24 09:47 30 MG Acetaminophen 650 mg Q6HP PRN PO 05/06/24 03:30 Nitroglycerin 0.4 mg Q5MINP PRN SL 05/06/24 03:30 Morphine Sulfate 2 mg Q30M PRN IV 05/06/24 03:30 Albuterol 2.5 mg Q6HPRN PRN NEB 05/06/24 04:15 Fentanyl Citrate 250 ml @ 2.5 mls/hr Q24H IV 05/06/24 06:25 05/08/24 03:30 20 MLS/HR Acetaminophen 650 mg Q6HP PRN MD 05/06/24 09:00 UNV Midazolam HCl 50 ml @ 1 mls/hr Q24H IV 05/06/24 09:00 05/08/24 03:29 5 MLS/HR Diagnostic Test (Pha) 1 strip IQ4HR 05/07/24 12:00 05/08/24 08:00 1 STRIP Insulin Human Regular IQ4HR SC 05/07/24 12:00 05/08/24 09:29 2 UNITS Dextrose 50 ml UD PRN IV 05/07/24 08:30 Thiamine HCl 100 mg DAILY IV 05/07/24 10:00 05/08/24 09:47 100 MG Ampicillin Sodium/ Sulbactam Sodium 3 gm/Sodium Chloride 100 ml @ 100 mls/hr Q12H IV 05/07/24 11:45 05/07/24 23:43 100 MLS/HR Dextrose/Sodium Chloride 1,000 ml @ 100 mls/hr Q10H IV 05/08/24 00:24 05/08/24 10:53 100 MLS/HR Examination: LUNGS:Normal, CVS:Normal, MSK:Normal laboratory and microbiology Laboratory Tests 05/08/24 05:03 Test 05/08/24 05:03 Range/Units Serum Glucose 128 H 74-106 mg/dL Microbiology Date/Time Source Procedure Growth Status 05/06/24 02:52 Trachea Gram Stain - Final Resulted 05/06/24 02:52 Trachea Respiratory Culture - Preliminary Resulted Problem List/Assessment/Plan Problem List/Assessment/Plan Acute kidney injury superimposed Chronic Kidney Disease secondary hemodynamic mediated Acute respiratory failure, patient intubated on ventilator Diabetic ketoacidosis Sepsis Urinary tract infection Pneumonia Hypoalbuminemia Polysubstance abuse Anemia of chronic kidney disease Hypomagnesemia Hypophosphatemia Recommendations Kidney function is improving Increased urine output Grady catheter Strict I&Os I agree with IV fluid hydration Albumin 25% IV piggyback K-Phos IV piggyback Magnesium sulfate IV piggyback Kidney ultrasound reported no obstruction Insulin sliding scale IV antibiotic We will continue to follow Plan discussed with: Other (Nurse) STACIE RENAE MD May 08, 2024 11:29
--- NOTE | 2024-05-08 15:38 | DVH ---
CLINICAL INFORMATION: 39 years old, Female; INTUBATED. TECHNIQUE: Single AP portable chest radiograph was obtained. COMPARISON: XY CHEST PORTABLE on DOS: 05/07/24, XY CHEST PORTABLE on DOS: 05/06/24 FINDINGS: Stable satisfactory positioning of the endotracheal tube and enteric tube. Ill-defined opacities in t he lung bases, left greater than right, with the right basilar opacities new compared to the prior ex am, may be due to atelectasis and/or consolidation. No pneumothorax or pleural effusion. No other si gnificant interval change. IMPRESSION: 1. Stable satisfactory positioning of the endotracheal tube and enteric tube. 2. Bibasilar opacities, left greater than right as detailed above.
[2024-05-08] MEDS: AMPICILLIN & SULBACTAM SODIUM 3 GM in SODIUM CHL 0.9% 100 ML IV SCH (18:34)
--- NOTE | 2024-05-08 23:03 | DVHINCON2 ---
Date of service: May 08, 2024 Referring Physician Jarrod Henderson DO Reason for Consultation Acute hypoxic respiratory failure requiring mechanical ventilator History of Present Illness A 39-year-old woman with past medical history of diabetes mellitus who presented to ED on 05/06/24 for evaluation of hyperglycemia. Patient was noted to be lethargic by family, so EMS was called. On arrival patient's blood sugar was greater than 600 and blood pressure in the 70s. Patient became progressively more confused in the emergency department, requiring emergent intubation for airway protection. Patient was admitted for further care and pulmonary consultation is requested for evaluation and management of acute hypoxic respiratory failure requiring mechanical ventilator Review of Systems: 14-point review of systems negative unless otherwise noted above. Past Medical History: Diabetes mellitus Past Surgical History: None Medications: Reviewed. Allergies: No known drug allergies. Family History: No family history of premature CAD. No family history of lung disorders. Social History: Nonsmoker. No alcohol use. Drugs: Methamphetamine use. Allergies: Coded Allergies: NO KNOWN ALLERGIES (Unverified , 05/06/24) Current Medications Current Medications Medications (Trade) Dose Ordered Sig/Tera Route PRN Reason Start Time Stop Time Status Last Admin Dextrose/Sodium Chloride 1,000 ml @ 100 mls/hr Q10H IV 05/08/24 00:24 05/08/24 22:13 Ampicillin Sodium/ Sulbactam Sodium 3 gm/Sodium Chloride 100 ml @ 100 mls/hr Q6H IV 05/08/24 18:00 05/08/24 18:34 Vital Signs Vital Signs Date Time Temp Pulse Resp B/P (MAP) Pulse Ox O2 Delivery O2 Flow Rate FiO2 05/08/24 22:30 97.9 92 16 129/91 (104) 100 97.9 05/08/24 22:00 Mechanical Ventilator+ 35 35 05/08/24 16:01 35.0 Physical Exam Gen.: Patient lying in bed in medical ICU. Sedated, intubated on mechanical ventilator. Head: Normocephalic, atraumatic. Eyes: PERRLA. Ears: Normal external anatomy. Throat: Endotracheal tube and orogastric tube in place. Neck: Supple, trachea midline. Chest: Transmitted breath sounds bilaterally. Decreased air entry bilaterally. No wheezing. Bibasilar crackles. Cardiovascular: Positive S1, positive S2. Regular rate and rhythm. Abdomen: Positive bowel sounds in all 4 quadrants. Soft, nontender, nondistended. : Grady in place. Normal external genitalia. Rectal: Deferred. Skin: Warm, dry. Intact. Extremities: 2+ radial pulses bilaterally. No lower extremity edema. Neuro: Sedated. Labs/Diagnostic Data Labs Test 05/08/24 20:47 05/08/24 08:25 05/08/24 05:03 05/07/24 13:00 Range/Units POC Glucose 72 70-106 mg/dl Blood Gas Specimen Type Arterial Blood Gas Sample Site Left radial Blood Gas Patient Temperature 37.0 Arterial Blood Date Drawn [id number] Arterial Blood pH 7.306 L 7.350-7.450 Arterial Blood Partial Pressure CO2 43.3 32.0-45.0 mmHg Arterial Blood Partial Pressure O2 63.3 L 83.0-108.0 mmHg Arterial Blood HCO3 21.1 21.0-28.0 mmol/L Arterial Blood Oxygen Saturation 92.5 L 94.0-98.0 % Arterial Blood Base Excess -4.9 L -2.0-3.0 mmol/L Arterial Blood Oxyhemoglobin 91.4 L 94.0-98.0 % Arterial Blood Carboxyhemoglobin 0.9 0.5-1.5 % Arterial Blood Methemoglobin 0.3 0.0-1.5 % Tom Test Modified Blood Gas Total Hemoglobin 9.90 L 12.0-16.0 g/dL Blood Gas Set Respiration Rate 16.0 Blood Gas Modality Vent - ac FiO2 % 60.0 Blood Gas Tidal Volume 400.0 Blood Gas PEEP or CPAP 5.0 White Blood Count 17.2 #H 4.4-10.8 10^3/uL Red Blood Count 3.46 L 4.0-5.20 10^6/uL Hemoglobin 9.3 L 12.2-16.2 g/dL Hematocrit 28.1 L 36.0-46.0 % Mean Corpuscular Volume 81.2 80.0-100.0 fL Mean Corpuscular Hemoglobin 27.0 L 28.0-32.0 pg Mean Corpuscular Hemoglobin Concent 33.2 32.0-36.0 g/dL Red Cell Distribution Width 15.1 H 11.8-14.3 % Platelet Count 267 140-450 10^3/uL Mean Platelet Volume 8.9 6.9-10.8 fL Neutrophils (%) (Auto) 37.0-80.0 % Lymphocytes (%) (Auto) 10.0-50.0 % Monocytes (%) (Auto) 0.0-12.0 % Basophils (%) (Auto) 0.0-2.0 % Neutrophils # (Auto) 1.6-8.6 10 ^3/uL Lymphocytes # (Auto) 0.4-5.4 10 ^3/uL Monocytes # (Auto) 0-1.3 10 ^3/uL Differential Total Cells Counted 100.0 100 Neutrophils % (Manual) 62 37.0-80.0 Band Neutrophils % (Manual) 23 Lymphocytes % (Manual) 12 10.0-50.0 Monocytes % (Manual) 3 0-12 Eosinophils % (Manual) 0 0-7 Basophils % (Manual) 0 0.0-2.0 Metamyelocytes % (manual) 0 Myelocytes % (Manual) 0 Promyelocytes % (Manual) 0 Blast Cells % (Manual) 0 Reactive Lymphocytes 0 Platelet Estimate Adequate Sodium Level 141 136-145 mmol/L Potassium Level 3.9 3.5-5.1 mmol/L Chloride Level 112 H 98-107 mmol/L Carbon Dioxide Level 22 20-31 mmol/L Anion Gap 7 5-15 Blood Urea Nitrogen 30 H 9-23 mg/dL Creatinine 2.13 H 0.550-1.02 mg/dL Glomerular Filtration Rate Calc 30 >90 mL/min BUN/Creatinine Ratio 14.1 10.0-20.0 Serum Glucose 128 H 74-106 mg/dL Calcium Level 8.0 L 8.7-10.4 mg/dL Phosphorus Level 3.3 2.4-5.1 mg/dL Magnesium Level 2.0 1.6-2.6 mg/dL Test 05/07/24 10:38 05/07/24 05:12 05/06/24 22:33 05/06/24 14:28 Range/Units Urine Osmolality 255 mOsm/kg Urine Creatinine 29.62 L 30.0-125.0 mg/dL Urine Protein/Creatinine Ratio 2.31 Urine Sodium 48 40-220 mmol/L Urine Total Protein 68.3 H 1-14 mg/dL Eosinophils (%) (Auto) 0.3 0.0-7.0 % Eosinophils # (Auto) 0 0-0.8 10 ^3/uL Basophils # (Auto) 0 0-0.2 10 ^3/uL Nucleated Red Blood Cells 0.0 % Total Bilirubin 0.2 0.2-1.0 mg/dL Aspartate Amino Transferase (AST) 35 13-40 U/L Alanine Aminotransferase (ALT) 29 7-40 U/L Alkaline Phosphatase 132 H 46-116 U/L Total Protein 4.8 L 5.7-8.2 g/dL Albumin 2.8 L 3.2-4.8 g/dL Blood Gas Spontaneous Rate 17 Blood Gas Spontaneous Tidal Volume 404 Blood Gas Inspiratory Pressure 15.0 Bl Gas Inspiratory/Expiratory Ratio 1:3 Urine Color Colorless Yellow Urine Clarity Ex.turbid Clear Urine pH 5.5 5.0-9.0 Urine Specific [place] 1.001 1.001-1.035 Urine Protein 1+ H Negative Urine Ketones 1+ H Negative Urine Blood 2+ H Negative /uL Urine Nitrite Negative Negative Urine Bilirubin Negative Negative Urine Urobilinogen Normal Negative mg/dL Urine Leukocyte Esterase 3+ Negative /uL Urine RBC 771 0 - 4 /hpf Urine WBC Clumps Present None Seen /hpf Urine Microscopic WBC 1138 H 0-5 /HPF Urine Squamous Epithelial Cells Few <5 /hpf Urine Bacteria Few H None Seen /hpf Urine Mucus Few None Seen Urine Yeast (Budding) Loaded None Seen /hpf Urine Glucose 4+ H Normal mg/dL Urine Opiates Screen Pos NEGATIVE Urine Fentanyl Screen Pos NEGATIVE Urine Barbiturates Screen Neg NEGATIVE Urine Phencyclidine Screen Neg NEGATIVE Urine Amphetamines Screen Pos NEGATIVE Urine Benzodiazepines Screen Pos NEGATIVE Urine Cocaine Screen Neg NEGATIVE Urine Cannabinoids Screen Neg NEGATIVE Test 05/06/24 04:33 05/06/24 01:26 05/06/24 01:25 Range/Units Blood Gas Critical Value Read Back Yes Blood Gas Notified Whom Krish be md Blood Gas Notified Time [id number] Blood Gas Notified By Adult Education Teacher sienna segal Serum Osmolality 333 H 278-298 mOsm/kg Lactic Acid Level 1.5 0.4-2.0 mmol/L Lipase 27 12-53 U/L Beta-Hydroxybutyric Acid > 4.500 H < 0.4 mmol/L Venous Blood pH 7.054 *L 7.320-7.430 Venous Blood pCO2 at Patient Temp 15.4 L 38.0-54.0 mmHg Venous Blood pO2 at Patient Temp 48.7 H 23.0-48.0 mmHg Venous Blood HCO3 4.2 L 22.0-29.0 mmol/L Venous Blood Base Excess -24.2 L -2.0-3.0 mmol/L Specimen Drawn By Ying decker rn Microbiology Date/Time Source Procedure Growth Status 05/06/24 02:52 Trachea Gram Stain - Final Complete 05/06/24 02:52 Respiratory Culture - Final Methicillin Resistant S.aureus Complete Assessment Impression: Acute hypoxic respiratory failure On mechanical ventilator Pneumonia, likely gram negative Diabetic ketoacidosis Methamphetamine abuse Atelectasis Plan: s/p intubation on mechanical ventilator. CXR image and report reviewed. Devices in place. Bibasilar opacities, left greater than right. ABG reviewed, acidemia. On AC mode; RR 16, VT 400, PEEP 5, FiO2 35% Titrate FIO2 to keep O2 saturation above 90%. VAP bundle. Daily ABG and CXR while intubated Sedate for ventilator synchrony - on Versed, Fentanyl Continue antibiotics. F/u cultures. On pressors for hemodynamic support Levophed 2 mcg/min Titrate to keep mean arterial pressure greater than 65 mmHg. Monitor renal function Monitor electrolytes. Supplement as necessary. Monitor ins and outs. Maintain euvolemia. Taper sedation as tolerated CPAP in the AM. GI prophylaxis. DVT prophylaxis. Prognosis: Poor given patient's multiple co-morbidities. Condition: Critical Rest of plan per hospitalist and other consultants. A total of 35 minutes of critical care time was spent reviewing the patient record, examining the patient, making a diagnostic and therapeutic plan, discussing this plan with the medical personnel, following up on diagnostic s tudies and following the patient for clinical stability excluding any and all procedures. At least 50% of this time was spent in direct, [id number] contact. Thank you Dr. Henderson for allowing me to participate in this patient's care. Further recommendations will depend on the patient's clinical course. Please do not hesitate to contact me if you have any questions or concerns. This medical document was created using an electronic medical record system with [employer] system. Although these documentations are being carefully reviewed, there may still be some phonetic and typographical changes. The errors are purely typographical, due to imperfection on the software program, and do not reflect any compromise in the patient's medical care. Plan discussed with: Other (BART Seth/Dr. Henderson) CONSUELO CUENCA MD May 08, 2024 23:03
[2024-05-08] MEDS: DEXTROSE (50%) 50ML SYRG IV PRN (23:26)
[2024-05-09] VITALS (106 sets, daily range): BP systolic 84–192; BP diastolic 51–129; PULSE 68–102; RESP 7–25; TEMP 97.2–99; O2SAT 94–100
[2024-05-09 06:15] LABS: Basophils # (auto) 0.1 10 ^3/uL (0-0.2); Basophils % (auto) 0.3 % (0.0-2.0); Eosinophils # (auto) 0.2 10 ^3/uL (0-0.8); Hemoglobin 9.1 g/dL (12.2-16.2)
[2024-05-09 06:19] LABS: Eosinophils % (auto) 0.8 % (0.0-7.0); Lymphocytes # (auto) 0.7 10 ^3/uL (0.4-5.4); Lymphocytes % (auto) 3.6 % (10.0-50.0); Mean Corpuscular Hemoglobin 26.9 pg (28.0-32.0); Mean Corpuscular Hgb Conc. 32.4 g/dL (32.0-36.0); Monocytes # (auto) 0.5 10 ^3/uL (0-1.3); Monocytes % (auto) 2.8 % (0.0-12.0); Neutrophils # (auto) 17.2 10 ^3/uL (1.6-8.6); Neutrophils % (auto) 92.5 % (37.0-80.0); Platelet Count (auto) 248 10^3/uL (140-450); Red Blood Cells 3.38 10^6/uL (4.0-5.20); Red Cell Distribution Width 15.4 % (11.8-14.3); White Blood Cell 18.6 10^3/uL (4.4-10.8)
[2024-05-09 06:28] LABS: Anion Gap 9 (5-15); BUN/Creatinine Ratio 13.6 (10.0-20.0); Carbon Dioxide 21 mmol/L (20-31); Glucose 105 mg/dL (74-106); Sodium 143 mmol/L (136-145)
[2024-05-09 06:29] LABS: Alanine Aminotransferase 78 U/L (7-40); Albumin 2.8 g/dL (3.2-4.8); Alkaline Phosphatase 209 U/L (46-116); Aspartate Aminotransferase 133 U/L (13-40); Bilirubin, Total 0.2 mg/dL (0.2-1.0); Blood Urea Nitrogen 24 mg/dL (9-23); Calcium 8.4 mg/dL (8.7-10.4); Chloride 113 mmol/L (98-107); Potassium 3.5 mmol/L (3.5-5.1)
--- NOTE | 2024-05-09 11:08 | DVHPN2 ---
Progress Note Date Seen: May 09, 2024 Medical Necessity Reason Pt with a Central, PICC or Fol: No Subjective Review of Systems: RESPIRATORY:Abnormal Other Systems: Patient seen and examined by myself today in follow-up Patient remained intubated on ventilator Objective vital signs Vital Sign Date Time Temp Pulse Resp B/P (MAP) Pulse Ox O2 Delivery O2 Flow Rate FiO2 05/09/24 10:10 93 16 131/91 (104) 100 30 05/09/24 10:00 Mechanical Ventilator+ 05/09/24 03:00 97.7 97.7 05/08/24 16:01 35.0 Total Intake and Output 05/08/24 05/08/24 05/09/24 15:00 23:00 07:00 Intake Total 987.995 ml 1098.25 ml 1137.6 ml Output Total 700 ml 1350 ml Balance 987.995 ml 398.25 ml -212.4 ml medications Current Medications Medications Dose Ordered Sig/Tera Route Start Time Stop Time Status Last Admin Dose Admin Insulin Glargine 15 units DAILY SC 05/07/24 10:00 05/08/24 09:29 15 UNITS Norepinephrine Bitartrate 250 ml @ 3.75 mls/hr Q24H IV 05/06/24 02:45 05/06/24 04:10 3.75 MLS/HR Propofol 100 ml @ 1.908 mls/ hr Q24H IV 05/06/24 02:45 05/06/24 15:44 19.08 MLS/HR Ondansetron HCl 4 mg Q4HP PRN IV 05/06/24 03:30 Enoxaparin Sodium 30 mg DAILY SC 05/06/24 10:00 05/09/24 09:26 30 MG Acetaminophen 650 mg Q6HP PRN PO 05/06/24 03:30 Nitroglycerin 0.4 mg Q5MINP PRN SL 05/06/24 03:30 Morphine Sulfate 2 mg Q30M PRN IV 05/06/24 03:30 Albuterol 2.5 mg Q6HPRN PRN NEB 05/06/24 04:15 Fentanyl Citrate 250 ml @ 2.5 mls/hr Q24H IV 05/06/24 06:25 05/08/24 22:07 17.5 MLS/HR Acetaminophen 650 mg Q6HP PRN TX 05/06/24 09:00 UNV Midazolam HCl 50 ml @ 1 mls/hr Q24H IV 05/06/24 09:00 05/08/24 22:14 4 MLS/HR Diagnostic Test (Pha) 1 strip IQ4HR 05/07/24 12:00 05/09/24 08:26 1 STRIP Insulin Human Regular IQ4HR SC 05/07/24 12:00 05/08/24 13:34 2 UNITS Dextrose 50 ml UD PRN IV 05/07/24 08:30 05/08/24 23:26 50 ML Thiamine HCl 100 mg DAILY IV 05/07/24 10:00 05/09/24 09:26 100 MG Dextrose/Sodium Chloride 1,000 ml @ 100 mls/hr Q10H IV 05/08/24 00:24 05/08/24 22:13 100 MLS/HR Ampicillin Sodium/ Sulbactam Sodium 3 gm/Sodium Chloride 100 ml @ 100 mls/hr Q6H IV 05/08/24 18:00 05/09/24 05:44 100 MLS/HR Dexmedetomidine HCl 400 mcg/ Dextrose 100 ml @ 3.18 mls/hr Q24H IV 05/09/24 04:15 05/09/24 05:55 3.18 MLS/HR Examination: LUNGS:Normal, CVS:Normal, MSK:Normal laboratory and microbiology Laboratory Tests 05/09/24 05:35 Test 05/09/24 05:35 Range/Units Serum Glucose 105 74-106 mg/dL Microbiology Date/Time Source Procedure Growth Status 05/06/24 02:52 Trachea Gram Stain - Final Complete 05/06/24 02:52 Respiratory Culture - Final Methicillin Resistant S.aureus Complete Problem List/Assessment/Plan Problem List/Assessment/Plan Acute kidney injury superimposed Chronic Kidney Disease secondary hemodynamic mediated Acute respiratory failure, patient intubated on ventilator Diabetic ketoacidosis Sepsis Urinary tract infection Pneumonia Hypoalbuminemia Polysubstance abuse Anemia of chronic kidney disease Hypomagnesemia Hypophosphatemia Recommendations Kidney function is improving Increased urine output Grady catheter Strict I&Os I agree with IV fluid hydration Albumin 25% IV piggyback K-Phos IV piggyback Magnesium sulfate IV piggyback Kidney ultrasound reported no obstruction Insulin sliding scale IV antibiotic We will continue to follow Plan discussed with: Other (Nurse) STACIE RENAE MD May 09, 2024 11:08
--- NOTE | 2024-05-09 14:33 | DVH ---
CHEST RADIOGRAPH Indication: INTUBATED Technique: Single frontal view of the chest was obtained Comparison: XY CHEST PORTABLE on DOS: 05/08/24, XY CHEST PORTABLE on DOS: 05/07/24, XY CHEST PORTABLE o n DOS: 05/06/24 FINDINGS: Lines and Tubes: Endotracheal tube in place 1.1 cm above the oscar. Enteric tube below the left princess phragm in the stomach Lungs: Bibasilar airspace disease is now noted. Pleura: No effusion. No pneumothorax. Cardiomediastinal contours: Unremarkable Bones: No acute osseous abnormality. IMPRESSION: 1. Endotracheal tube in place 1.1 cm above the oscar. 2. Enteric tube below the left diaphragm in the stomach 3. Bibasilar airspace disease in the right and left lower lobes.
[2024-05-09 15:40] LABS: Base Excess -6.1 mmol/L (-2.0-3.0)
--- NOTE | 2024-05-09 23:17 | DVHPN2 ---
Progress Note - Dictate Date Seen: May 09, 2024 Medical Necessity Reason Pt with a Central, PICC or Fol: Yes The following are medically ne: Moctezuma Catheter Reason for moctezuma catheter: Strict I&O Subjective Patient seen and examined at bedside. intubated on mechanical ventilator. Overnight events reviewed. vital signs Vital Sign Date Time Temp Pulse Resp B/P (MAP) Pulse Ox O2 Delivery O2 Flow Rate FiO2 05/09/24 23:00 97.7 90 21 119/85 (96) 99 97.7 05/09/24 22:38 30 05/09/24 22:00 Mechanical Ventilator+ 05/08/24 16:01 35.0 Total Intake and Output 05/08/24 05/08/24 05/09/24 15:00 23:00 07:00 Intake Total 987.995 ml 1098.25 ml 1137.6 ml Output Total 700 ml 1350 ml Balance 987.995 ml 398.25 ml -212.4 ml medications Current Medications Medications Dose Ordered Sig/Tera Route Start Time Stop Time Status Last Admin Dose Admin Insulin Glargine 15 units DAILY SC 05/07/24 10:00 05/08/24 09:29 15 UNITS Norepinephrine Bitartrate 250 ml @ 3.75 mls/hr Q24H IV 05/06/24 02:45 05/06/24 04:10 3.75 MLS/HR Propofol 100 ml @ 1.908 mls/ hr Q24H IV 05/06/24 02:45 05/06/24 15:44 19.08 MLS/HR Ondansetron HCl 4 mg Q4HP PRN IV 05/06/24 03:30 Enoxaparin Sodium 30 mg DAILY SC 05/06/24 10:00 05/09/24 09:26 30 MG Acetaminophen 650 mg Q6HP PRN PO 05/06/24 03:30 Nitroglycerin 0.4 mg Q5MINP PRN SL 05/06/24 03:30 Morphine Sulfate 2 mg Q30M PRN IV 05/06/24 03:30 Albuterol 2.5 mg Q6HPRN PRN NEB 05/06/24 04:15 Fentanyl Citrate 250 ml @ 2.5 mls/hr Q24H IV 05/06/24 06:25 05/09/24 16:44 2.5 MLS/HR Acetaminophen 650 mg Q6HP PRN LA 05/06/24 09:00 UNV Midazolam HCl 50 ml @ 1 mls/hr Q24H IV 05/06/24 09:00 05/08/24 22:14 4 MLS/HR Diagnostic Test (Pha) 1 strip IQ4HR 05/07/24 12:00 05/09/24 20:00 1 STRIP Insulin Human Regular IQ4HR SC 05/07/24 12:00 05/09/24 20:00 2 UNITS Dextrose 50 ml UD PRN IV 05/07/24 08:30 05/08/24 23:26 50 ML Thiamine HCl 100 mg DAILY IV 05/07/24 10:00 05/09/24 09:26 100 MG Dextrose/Sodium Chloride 1,000 ml @ 100 mls/hr Q10H IV 05/08/24 00:24 05/09/24 18:00 100 MLS/HR Ampicillin Sodium/ Sulbactam Sodium 3 gm/Sodium Chloride 100 ml @ 100 mls/hr Q6H IV 05/08/24 18:00 05/09/24 18:08 100 MLS/HR Dexmedetomidine HCl 400 mcg/ Dextrose 100 ml @ 3.18 mls/hr Q24H IV 05/09/24 04:15 05/09/24 20:43 7.95 MLS/HR objective Gen.: Patient lying in bed in medical ICU. intubated on mechanical ventilator. Head: Normocephalic, atraumatic. Eyes: PERRLA. Ears: Normal external anatomy. Throat: Endotracheal tube and orogastric tube in place. Neck: Supple, trachea midline. Chest: Transmitted breath sounds bilaterally. Decreased air entry bilaterally. No wheezing. Bibasilar crackles. Cardiovascular: Positive S1, positive S2. Regular rate and rhythm. Abdomen: Positive bowel sounds in all 4 quadrants. Soft, nontender, nondistended. : Moctezuma in place. Normal external genitalia. Rectal: Deferred. Skin: Warm, dry. Intact. Extremities: 2+ radial pulses bilaterally. No lower extremity edema. Neuro: Off sedation laboratory and microbiology Laboratory Tests 05/09/24 05:35 Test 05/09/24 05:35 Range/Units Serum Glucose 105 74-106 mg/dL Assessment/Plan Impression: Acute hypoxic respiratory failure On mechanical ventilator Pneumonia, likely gram negative Diabetic ketoacidosis Methamphetamine abuse Atelectasis Events: Remains on vent support On AC mode; RR 16, VT 400, PEEP 5, FiO2 30% Off sedation On Precedex Fentanyl drip Continue antibiotics On pressors for hemodynamic support Levophed 2 mcg/min Titrate to keep mean arterial pressure greater than 65 mmHg. ABG reviewed, notable for acidemia d/t metabolic acidosis CPAP with PS 8, PEEP of 5 Patient failed CPAP Labs and imaging reviewed. Rest of plan as noted below. Plan: s/p intubation on mechanical ventilator. CXR image and report reviewed. Devices in place. Bibasilar opacities, left greater than right. ABG reviewed, acidemia. On AC mode; RR 16, VT 400, PEEP 5, FiO2 30% Titrate FIO2 to keep O2 saturation above 90%. VAP bundle. Daily ABG and CXR while intubated Off sedation Continue antibiotics. F/u cultures. On pressors for hemodynamic support Titrate to keep mean arterial pressure greater than 65 mmHg. Monitor renal function Monitor electrolytes. Supplement as necessary. Monitor ins and outs. Maintain euvolemia. Taper sedation as tolerated CPAP in the AM. GI prophylaxis. DVT prophylaxis. Prognosis: Poor given patient's multiple co-morbidities. Condition: Critical Rest of plan per hospitalist and other consultants. A total of 35 minutes of critical care time was spent reviewing the patient record, examining the patient, making a diagnostic and therapeutic plan, discussing this plan with the medical personnel, following up on diagnostic studies and following the patient for clinical stability excluding any and all procedures. At least 50% of this time was spent in direct, [id number] contact. Thank you Dr. Henderson for allowing me to participate in this patient's care. Further recommendations will depend on the patient's clinical course. Please do not hesitate to contact me if you have any questions or concerns. This medical document was created using an electronic medical record system with [employer] dictation system. Although these documentations are being carefully reviewed, there may still be some phonetic and typographical changes. The errors are purely typographical, due to imperfection on the software program, and do not reflect any compromise in the patient's medical care. Plan discussed with: Other (BART Mathias) Critical Care Time(min): 35 CONSUELO CUENCA MD May 09, 2024 23:17
[2024-05-10] VITALS (112 sets, daily range): BP systolic 79–186; BP diastolic 51–134; PULSE 61–132; RESP 9–29; TEMP 96.4–100.8; O2SAT 86–100
[2024-05-10 03:47] LABS: Basophils # (auto) 0 10 ^3/uL (0-0.2); Basophils % (auto) 0.4 % (0.0-2.0); Eosinophils # (auto) 0.1 10 ^3/uL (0-0.8); Eosinophils % (auto) 0.7 % (0.0-7.0); Hematocrit 26.5 % (36.0-46.0); Hemoglobin 8.6 g/dL (12.2-16.2); Lymphocytes % (auto) 7.8 % (10.0-50.0); Mean Corpuscular Hemoglobin 26.4 pg (28.0-32.0); Mean Corpuscular Hgb Conc. 32.3 g/dL (32.0-36.0); Mean Corpuscular Volume 81.7 fL (80.0-100.0); Monocytes # (auto) 0.4 10 ^3/uL (0-1.3); Monocytes % (auto) 2.9 % (0.0-12.0); Neutrophils # (auto) 11.3 10 ^3/uL (1.6-8.6); Neutrophils % (auto) 88.2 % (37.0-80.0); Nucleated Red Blood Cells % 0.1 %; Platelet Count (auto) 192 10^3/uL (140-450); Red Blood Cells 3.25 10^6/uL (4.0-5.20); Red Cell Distribution Width 15.7 % (11.8-14.3); White Blood Cell 12.9 10^3/uL (4.4-10.8)
[2024-05-10 04:11] LABS: Anion Gap 10 (5-15); BUN/Creatinine Ratio 13.6 (10.0-20.0); Blood Urea Nitrogen 23 mg/dL (9-23); Carbon Dioxide 22 mmol/L (20-31)
[2024-05-10 04:26] LABS: Alanine Aminotransferase 96 U/L (7-40); Alkaline Phosphatase 243 U/L (46-116); Calcium 8.6 mg/dL (8.7-10.4); Chloride 114 mmol/L (98-107); Glucose 173 mg/dL (74-106); Potassium 3.2 mmol/L (3.5-5.1); Sodium 146 mmol/L (136-145)
[2024-05-10 04:28] LABS: Albumin 2.6 g/dL (3.2-4.8); Aspartate Aminotransferase 142 U/L (13-40); Bilirubin, Total 0.3 mg/dL (0.2-1.0); Total Protein 4.7 g/dL (5.7-8.2)
--- NOTE | 2024-05-10 05:30 | DVH ---
CHEST RADIOGRAPH Indication: protocol Technique: Single frontal view of the chest was obtained COMPARISON: XY CHEST PORTABLE on DOS: 05/09/24, XY CHEST PORTABLE on DOS: 05/08/24, XY CHEST PORTABLE o n DOS: 05/07/24, XY CHEST PORTABLE on DOS: 05/06/24 FINDINGS: Lines and Tubes: Endotracheal tube at the level of the oscar. Enteric catheter in satisfactory posi tion. Lungs: Patchy bilateral lower lobe airspace disease. Pleura: No effusion. No pneumothorax. Cardiomediastinal contours: Unremarkable Bones: Unremarkable IMPRESSION: Endotracheal tube projects towards the right mainstem bronchus. Recommend retraction by 2 cm.
[2024-05-10] MEDS: POTASSIUM CHL 20MEQ/100ML 100 ML IV ONE (06:17)
[2024-05-10] MEDS: LINEZOLID 600MG/300ML 300 ML IV SCH (08:51)
[2024-05-10] MEDS: NOREPINEPHRINE 8 MG/250ML KIT 250 ML IV SCH (09:30)
[2024-05-10] MEDS ORDERED: LABETALOL HCL 20 MG/4 ML VL IV PRN (10:00)
[2024-05-10] MEDS ORDERED: AMPICILLIN & SULBACTAM SODIUM 3 GM in SODIUM CHL 0.9% 100 ML IV SCH (10:00)
--- NOTE | 2024-05-10 10:05 | DVHPN2 ---
Subjective Chemically sedated Reviewed: Care Plan, H&P, Labs, Medications, Previous Orders Changes from previous H/P or p: No Changes General: Per HPI Objective Vitals Vital Signs Date Time Temp Pulse Resp B/P (MAP) Pulse Ox O2 Delivery O2 Flow Rate FiO2 05/10/24 07:47 98 20 185/118 (140) 96 30 05/10/24 07:15 98.1 208.6 05/10/24 05:57 Mechanical Ventilator+ 05/08/24 16:01 35.0 Intake/Output Intake and Output 05/10/24 07:00 Intake Total 2664.29 ml Output Total 2050 ml Balance 614.29 ml Intake Oral 0 ml IV Total 2664.29 ml Output Urine Total 2050 ml Stool Total 0 ml General Appearance: Cooperative, moderate distress HEENT: Atraumatic, PERRLA Lungs: Clear to auscultation, Normal air movement, Other (mechanical ventilation) Cardiovascular: Normal S1, Normal S2 Abdomen: Normal bowel sounds, Soft, No tenderness Genitourinary: No Apparent Abnormalities (Grady catheter) Musculoskeletal: Normal sensory function, Normal motor function Neuro: Normal gait, Normal speech Skin: Dry, Intact Psych/Mental Status: Other (Chemically sedated) Medications Current Medications Medications Dose Ordered Sig/Tera Route Start Time Stop Time Status Last Admin Dose Admin Insulin Glargine 15 units DAILY SC 05/07/24 10:00 05/10/24 08:53 15 UNITS Propofol 100 ml @ 1.908 mls/ hr Q24H IV 05/06/24 02:45 05/06/24 15:44 19.08 MLS/HR Ondansetron HCl 4 mg Q4HP PRN IV 05/06/24 03:30 Enoxaparin Sodium 30 mg DAILY SC 05/06/24 10:00 05/10/24 08:52 30 MG Acetaminophen 650 mg Q6HP PRN PO 05/06/24 03:30 Nitroglycerin 0.4 mg Q5MINP PRN SL 05/06/24 03:30 Morphine Sulfate 2 mg Q30M PRN IV 05/06/24 03:30 Albuterol 2.5 mg Q6HPRN PRN NEB 05/06/24 04:15 Fentanyl Citrate 250 ml @ 2.5 mls/hr Q24H IV 05/06/24 06:25 05/09/24 16:44 2.5 MLS/HR Acetaminophen 650 mg Q6HP PRN [place] 05/06/24 09:00 UNV Midazolam HCl 50 ml @ 1 mls/hr Q24H IV 05/06/24 09:00 05/08/24 22:14 4 MLS/HR Diagnostic Test (Pha) 1 strip IQ4HR 05/07/24 12:00 05/10/24 08:40 1 STRIP Insulin Human Regular IQ4HR SC 05/07/24 12:00 05/10/24 04:02 3 UNITS Dextrose 50 ml UD PRN IV 05/07/24 08:30 05/08/24 23:26 50 ML Thiamine HCl 100 mg DAILY IV 05/07/24 10:00 05/10/24 08:51 100 MG Dextrose/Sodium Chloride 1,000 ml @ 100 mls/hr Q10H IV 05/08/24 00:24 05/10/24 03:50 100 MLS/HR Dexmedetomidine HCl 400 mcg/ Dextrose 100 ml @ 3.18 mls/hr Q24H IV 05/09/24 04:15 05/09/24 20:43 7.95 MLS/HR Linezolid 300 ml @ 150 mls/hr Q12HR IV 05/10/24 10:00 05/10/24 08:51 150 MLS/HR Norepinephrine Bitartrate 250 ml @ 3.75 mls/hr Q24H IV 05/10/24 09:30 Laboratory Results Laboratory Tests 05/10/24 03:15 Chemistry Test 05/10/24 03:15 Albumin 2.6 g/dL (3.2-4.8) L Calcium Level 8.6 mg/dL (8.7-10.4) L Total Protein 4.7 g/dL (5.7-8.2) L LFT Test 05/10/24 03:15 Alanine Aminotransferase (ALT) 96 U/L (7-40) H Alkaline Phosphatase 243 U/L (46-116) H Aspartate Amino Transferase (AST) 142 U/L (13-40) H Total Bilirubin 0.3 mg/dL (0.2-1.0) Urinalysis Test 05/06/24 14:28 05/07/24 10:38 Urine Color Colorless (Yellow) Urine Clarity Ex.turbid (Clear) Urine pH 5.5 (5.0-9.0) Urine Specific [place] 1.001 (1.001-1.035) Urine Protein 1+ (Negative) H Urine Ketones 1+ (Negative) H Urine Blood 2+ /uL (Negative) H Urine Nitrite Negative (Negative) Urine Bilirubin Negative (Negative) Urine Urobilinogen Normal mg/dL (Negative) Urine Leukocyte Esterase 3+ /uL (Negative) Urine RBC 771 /hpf (0 - 4) Urine WBC Clumps Present /hpf (None Seen) Urine Microscopic WBC 1138 /HPF (0-5) H Urine Squamous Epithelial Cells Few /hpf (<5) Urine Bacteria Few /hpf (None Seen) H Urine Mucus Few (None Seen) Urine Yeast (Budding) Loaded /hpf (None Seen) Urine Glucose 4+ mg/dL (Normal) H Urine Osmolality 255 mOsm/kg Urine Creatinine 29.62 mg/dL (30.0-125.0) L Urine Protein/Creatinine Ratio 2.31 Urine Sodium 48 mmol/L (40-220) Urine Total Protein 68.3 mg/dL (1-14) H Blood Gas Results Test 05/09/24 15:30 Arterial Blood pH 7.293 (7.350-7.450) FiO2 % 30.0 Microbiology Microbiology Date/Time Source Procedure Growth Status 05/06/24 02:52 Trachea Gram Stain - Final Complete 05/06/24 02:52 Respiratory Culture - Final Methicillin Resistant S.aureus Complete Labs and/or images reviewed: Labs reviewed by me, Image(s) reviewed by me Assessment/Plan Assessment/Plan Impression: -diabetic ketoacidosis -acute respiratory failure with mechanical ventilation -acute kidney injury, vasomotor nephropathy -pseudo hyponatremia -sirs without organ dysfunction -diabetes mellitus -Polysubstance abuse Plan: Events: Patient was still mechanical ventilation. Instructions given to primary nurse to weaned sedation and performed spontaneous breathing trial. Patient now hemodynamically stable. Add of acidosis. -potassium replacement -sputum culture positive for MRSA. Stop Unasyn and change coverage with vancomycin. -PUD, DVT prophylaxis -repeat chest x-ray, labs, ABG in a.m. Critical care time spent with patient discussing and formulating plan of care: 40 minutes. This does not include time spent performing procedures. This medical document was created using an electronic medical record system with [employer] dictation system. Although this document has been carefully reviewed, there may still be some phonetic and typographical errors. These areas are purely typographical due to imperfections of the software programs, and do not reflect any compromise in the patient's medical care. Plan discussed with: Patient, Other (RN) My Orders Orders - REEMA KIRK NP Procedure Category Date Status Time * Wound Consult CONS 05/09/24 Transmitted * Dietary Consult CONS 05/09/24 Transmitted 17:53 Chest Portable XY 05/10/24 Resulted 04:00 Linezolid 600mg/300ml PHA 05/10/24 In Process (Zyvox) 10:00 Norepinephrine 8 PHA 05/10/24 In Process Mg/250ml Kit 09:30 Urine Bacterial AYDEN 05/10/24 In Process Culture 09:23 Date of Service: May 10, 2024 Billing Provider: REEMA KIRK NP Common Visit Codes: [id number] CARE 30-74 MIN REEMA KIRK NP May 10, 2024 10:04
--- NOTE | 2024-05-10 12:15 | DVHPN2 ---
Progress Note Date Seen: May 10, 2024 Medical Necessity Reason Pt with a Central, PICC or Fol: Yes The following are medically ne: Moctezuma Catheter Reason for moctezuma catheter: Strict I&O Subjective Review of Systems: RESPIRATORY:Abnormal Objective vital signs Vital Sign Date Time Temp Pulse Resp B/P (MAP) Pulse Ox O2 Delivery O2 Flow Rate FiO2 05/10/24 11:55 79/58 05/10/24 10:52 91 16 96 30 05/10/24 10:00 Mechanical Ventilator+ 05/10/24 07:15 98.1 208.6 05/08/24 16:01 35.0 Total Intake and Output 05/09/24 05/09/24 05/10/24 15:00 23:00 07:00 Intake Total 955.78 ml 908.81 ml 799.70 ml Output Total 1300 ml 750 ml Balance 955.78 ml -391.19 ml 49.70 ml medications Current Medications Medications Dose Ordered Sig/Tera Route Start Time Stop Time Status Last Admin Dose Admin Insulin Glargine 15 units DAILY SC 05/07/24 10:00 05/10/24 08:53 15 UNITS Propofol 100 ml @ 1.908 mls/ hr Q24H IV 05/06/24 02:45 05/06/24 15:44 19.08 MLS/HR Ondansetron HCl 4 mg Q4HP PRN IV 05/06/24 03:30 Enoxaparin Sodium 30 mg DAILY SC 05/06/24 10:00 05/10/24 08:52 30 MG Acetaminophen 650 mg Q6HP PRN PO 05/06/24 03:30 Nitroglycerin 0.4 mg Q5MINP PRN SL 05/06/24 03:30 Morphine Sulfate 2 mg Q30M PRN IV 05/06/24 03:30 Albuterol 2.5 mg Q6HPRN PRN NEB 05/06/24 04:15 Fentanyl Citrate 250 ml @ 2.5 mls/hr Q24H IV 05/06/24 06:25 05/09/24 16:44 2.5 MLS/HR Acetaminophen 650 mg Q6HP PRN [place] 05/06/24 09:00 UNV Midazolam HCl 50 ml @ 1 mls/hr Q24H IV 05/06/24 09:00 05/08/24 22:14 4 MLS/HR Diagnostic Test (Pha) 1 strip IQ4HR 05/07/24 12:00 05/10/24 11:27 1 STRIP Insulin Human Regular IQ4HR SC 05/07/24 12:00 05/10/24 11:32 3 UNITS Dextrose 50 ml UD PRN IV 05/07/24 08:30 05/08/24 23:26 50 ML Thiamine HCl 100 mg DAILY IV 05/07/24 10:00 05/10/24 08:51 100 MG Dextrose/Sodium Chloride 1,000 ml @ 100 mls/hr Q10H IV 05/08/24 00:24 05/10/24 03:50 100 MLS/HR Dexmedetomidine HCl 400 mcg/ Dextrose 100 ml @ 3.18 mls/hr Q24H IV 05/09/24 04:15 05/10/24 11:39 7.95 MLS/HR Linezolid 300 ml @ 150 mls/hr Q12HR IV 05/10/24 10:00 05/10/24 08:51 150 MLS/HR Norepinephrine Bitartrate 250 ml @ 3.75 mls/hr Q24H IV 05/10/24 09:30 05/10/24 11:55 3.75 MLS/HR Labetalol HCl 10 mg Q2HPRN PRN IV 05/10/24 10:00 Examination: GENERAL:Abnormal, LUNGS:Abnormal, CVS:Abnormal, ABDOMEN:Abnormal laboratory and microbiology Laboratory Tests 05/10/24 03:15 Test 05/10/24 03:15 Range/Units Serum Glucose 173 H 74-106 mg/dL Microbiology Date/Time Source Procedure Growth Status 05/06/24 02:52 Trachea Gram Stain - Final Complete 05/06/24 02:52 Respiratory Culture - Final Methicillin Resistant S.aureus Complete Problem List/Assessment/Plan Problem List/Assessment/Plan Acute kidney injury superimposed Chronic Kidney Disease secondary hemodynamic mediated Acute respiratory failure, patient intubated on ventilator Diabetic ketoacidosis Sepsis Urinary tract infection Pneumonia Hypoalbuminemia Polysubstance abuse Anemia of chronic kidney disease Hypomagnesemia Hypophosphatemia Kidney function is improving Increased urine output Moctezuma catheter Strict I&Os I agree with IV fluid hydration Albumin 25% IV piggyback K-Phos IV piggyback Magnesium sulfate IV piggyback Kidney ultrasound reported no obstruction Insulin sliding scale IV antibiotic Plan discussed with: Other Dietary Evaluation Review Comments: 1. If NPO > 7 days, TPN per pharmacy. 2. If EN/GI accessible, TF Nepro @25ml/hr (49g pro, 1062 kcal), offering prt's needs at 136% pro, 88% kcal. 3. If off vent,passes speech eval, advance to [facility]-60 Renal diet either standard (higher protein) or sepcific- protein restricted depending if pt needs dialysis. Expected Outcomes/Goals: controlled DM, less uremic synptoms. FRANK BARAJAS MD May 10, 2024 12:15
[2024-05-10 12:47] LABS: Base Excess -3.7 mmol/L (-2.0-3.0)
[2024-05-10] MEDS: POTASSIUM CHL 20MEQ/100ML 100 ML IV SCH (13:55)
[2024-05-10] MEDS: BUMETANIDE 1mg/4ml VIAL (0.25mg/ml) IV ONE (15:24)
--- NOTE | 2024-05-10 18:05 | DVHNC2 ---
Arterial Puncture Indication: Assess ventilatory status, Assess acid-base status Procedure: Arterial Punct Obtained Location: Right Femoral Informed consent obtained: Yes Risks/benefits/alt described: Yes Notes EBL: 5 ml Ultrasound guidance code: [id number] Indication: Septic shock, Respiratory failure Date of Service: May 10, 2024 Billing Provider: REEMA KIRK NP Common Visit Codes: PROCEDURE ONLY Procedure Codes: [id number] LINE REEMA KIRK NP May 10, 2024 18:05
--- NOTE | 2024-05-10 18:07 | DVHNC2 ---
Central Line Recorder of insertion practice: Candle Molder Hand Occupation of mid teacher: Other (Ramírez Kirk, [employer]) Indication: Hypotension, CVP monitoring, Volume resuscitation, Suspected in fection Room prepared for procedure: Yes Candle Molder Hand performed hand hygien: Yes Maximal sterile barrier precau: Mask/Eye shield, Sterile gown, Cap, Sterlie gloves, Large sterlie drape Skin Preparation: Chlorhexidine gluconate Skin preparation completely dr: Yes Insertion site: Right, Internal jugular Number of lumens: 3 Central line exchanged over a: No Antiseptic ointment applied to: No Post Assessment: Chest X-Ray, Proper placement, No Pneumothorax Informed consent obtained: Yes Risks/benefits/alt described: Yes Notes EBL: 3ml Ultrasound Guidance code: [id number] Date of Service: May 10, 2024 Billing Provider: REEMA KIRK NP Common Visit Codes: PROCEDURE ONLY Procedure Codes: [id number] NON-TUNNEL CV CATH REEMA KIRK NP May 10, 2024 18:07
[2024-05-10] MEDS: ONDANSETRON HCL 4 MG/2 ML VIAL IV PRN (18:28)
--- NOTE | 2024-05-10 18:38 | DVH ---
EXAM: XR Chest, 1 View CLINICAL INDICATION: aspiration TECHNIQUE: Frontal view of the chest. COMPARISON: XY CHEST PORTABLE on DOS: 05/10/24, XY CHEST PORTABLE on DOS: 05/09/24, XY CHEST PORTABLE on DOS: 05/08/24, XY CHEST PORTABLE on DOS: 05/07/24, XY CHEST PORTABLE on DOS: 05/06/24 FINDINGS: LUNGS AND PLEURAL SPACES: Pulmonary congestion and edema. Pneumonia cannot be excluded. No pneumoth orax. HEART: Unremarkable. No cardiomegaly. MEDIASTINUM: Unremarkable. Normal mediastinal contour. BONES/JOINTS: Unremarkable. No acute fracture. OTHER FINDINGS: . IMPRESSION: Pulmonary congestion and edema. Pneumonia cannot be excluded.
[2024-05-10] MEDS ORDERED: METOCLOPRAMIDE HCL 5MG/ml INJ 2ml VIAL IV PRN (18:45)
--- NOTE | 2024-05-10 23:44 | DVHPN2 ---
Progress Note - Dictate Date Seen: May 10, 2024 Medical Necessity Reason Pt with a Central, PICC or Fol: Yes The following are medically ne: Moctezuma Catheter Reason for moctezuma catheter: Strict I&O Subjective Patient seen and examined at bedside. S/p extubation, on high flow supplemental oxygen Overnight events reviewed. vital signs Vital Sign Date Time Temp Pulse Resp B/P (MAP) Pulse Ox O2 Delivery O2 Flow Rate FiO2 05/10/24 22:00 20 97 Mechanical Ventilator+ 35 30 30 05/10/24 21:00 98.1 111 98.1 Total Intake and Output 05/09/24 05/09/24 05/10/24 15:00 23:00 07:00 Intake Total 955.78 ml 908.81 ml 910.15 ml Output Total 1300 ml 750 ml Balance 955.78 ml -391.19 ml 160.15 ml medications Current Medications Medications Dose Ordered Sig/Tera Route Start Time Stop Time Status Last Admin Dose Admin Insulin Glargine 15 units DAILY SC 05/07/24 10:00 05/10/24 08:53 15 UNITS Propofol 100 ml @ 1.908 mls/ hr Q24H IV 05/06/24 02:45 05/06/24 15:44 19.08 MLS/HR Ondansetron HCl 4 mg Q4HP PRN IV 05/06/24 03:30 05/10/24 18:28 4 MG Enoxaparin Sodium 30 mg DAILY SC 05/06/24 10:00 05/10/24 08:52 30 MG Acetaminophen 650 mg Q6HP PRN PO 05/06/24 03:30 Nitroglycerin 0.4 mg Q5MINP PRN SL 05/06/24 03:30 Morphine Sulfate 2 mg Q30M PRN IV 05/06/24 03:30 Albuterol 2.5 mg Q6HPRN PRN NEB 05/06/24 04:15 Fentanyl Citrate 250 ml @ 2.5 mls/hr Q24H IV 05/06/24 06:25 05/09/24 16:44 2.5 MLS/HR Acetaminophen 650 mg Q6HP PRN [place] 05/06/24 09:00 UNV Midazolam HCl 50 ml @ 1 mls/hr Q24H IV 05/06/24 09:00 05/08/24 22:14 4 MLS/HR Diagnostic Test (Pha) 1 strip IQ4HR 05/07/24 12:00 05/10/24 20:26 1 STRIP Insulin Human Regular IQ4HR SC 05/07/24 12:00 05/10/24 11:32 3 UNITS Dextrose 50 ml UD PRN IV 05/07/24 08:30 05/10/24 16:13 50 ML Thiamine HCl 100 mg DAILY IV 05/07/24 10:00 05/10/24 08:51 100 MG Dextrose/Sodium Chloride 1,000 ml @ 100 mls/hr Q10H IV 05/08/24 00:24 05/10/24 22:29 100 MLS/HR Dexmedetomidine HCl 400 mcg/ Dextrose 100 ml @ 3.18 mls/hr Q24H IV 05/09/24 04:15 05/10/24 11:39 1.59 MLS/HR Linezolid 300 ml @ 150 mls/hr Q12HR IV 05/10/24 10:00 05/10/24 08:51 150 MLS/HR Norepinephrine Bitartrate 250 ml @ 3.75 mls/hr Q24H IV 05/10/24 09:30 05/10/24 11:55 3.75 MLS/HR Labetalol HCl 10 mg Q2HPRN PRN IV 05/10/24 10:00 Metoclopramide HCl 10 mg Q6HPRN PRN IV 05/10/24 18:45 Acetaminophen/ Hydrocodone Bitart 1 tab Q6HPRN PRN PO 05/10/24 23:45 UNV objective Gen.: Patient lying in bed in no apparent distress. On supplemental oxygen. Head: Normocephalic, atraumatic. Eyes: EOMI/PERRLA. Ears: Normal hearing. Normal anatomy. Neck/trachea: Trachea midline, supple. Nose: Normal external anatomy. Mouth: Moist mucous membranes. Chest: Decreased air entry bilaterally. No wheezing or rhonchi. Cardiovascular: Positive S1, positive S2. Regular rate and rhythm. Abdomen: Positive bowel sounds in all 4 quadrants. Soft, non-tender, non- distended. : Deferred. Rectal: Deferred. Skin: Warm, dry. Intact. Extremities: 2+ radial pulses bilaterally. No lower extremity edema. Neuro: Awake, alert, oriented x3. No gross motor or sensory deficits. Cranial nerves II through XII intact. Gait not assessed. laboratory and microbiology Laboratory Tests 05/10/24 03:15 Test 05/10/24 03:15 Range/Units Serum Glucose 173 H 74-106 mg/dL Assessment/Plan Impression: Acute hypoxic respiratory failure On mechanical ventilator Pneumonia, likely gram negative Diabetic ketoacidosis Methamphetamine abuse Atelectasis Events: Patient tolerated CPAP, was extubated uneventfully today Currently on high flow supplemental O2 at 30 LPM, FiO2 50% Taper O2 as tolerated Off sedation Off Levophed, hemodynamically stable. Continue antibiotics IV fluids at 100 ml/hr. Monitor renal function Monitor electrolytes. Supplement as necessary. Potassium supplementation Labs and imaging reviewed. Rest of plan as noted below. Plan: s/p extubation On high flow supplemental O2 at 30 LPM, FiO2 50% Titrate to keep O2 sats above 90%. Off sedation Bronchodilators PRN Continue antibiotics. F/u cultures - MRSA positive. Pressors if necessary for hemodynamic support Titrate to keep mean arterial pressure greater than 65 mmHg. Monitor renal function Monitor electrolytes. Supplement as necessary. Monitor ins and outs. Maintain euvolemia. GI prophylaxis. DVT prophylaxis. Prognosis: Poor given patient's multiple co-morbidities. Condition: Critical Rest of plan per hospitalist and other consultants. A total of 35 minutes of critical care time was spent reviewing the patient record, examining the patient, making a diagnostic and therapeutic plan, discussing this plan with the medical personnel, following up on diagnostic studies and following the patient for clinical stability excluding any and all procedures. At least 50% of this time was spent in direct, [id number] contact. Thank you Dr. Henderson for allowing me to participate in this patient's care. Further recommendations will depend on the patient's clinical course. Please do not hesitate to contact me if you have any questions or concerns. This medical document was created using an electronic medical record system with [employer] dictation system. Although these documentations are being carefully reviewed, there may still be some phonetic and typographical changes. The errors are purely typographical, due to imperfection on the software program, and do not reflect any compromise in the patient's medical care. Dietary Evaluation Review Comments: 1. If NPO > 7 days, TPN per pharmacy. 2. If EN/GI accessible, TF Nepro @25ml/hr (49g pro, 1062 kcal), offering prt's needs at 136% pro, 88% kcal. 3. If off vent,passes speech eval, [facility] Renal diet either standard (higher protein) or sepcific- protein restricted depending if pt needs dialysis. Expected Outcomes/Goals: controlled DM, less uremic synptoms. Plan discussed with: Other (BART Toscano) Critical Care Time(min): 35 CONSUELO CUENCA MD May 10, 2024 23:44
[2024-05-11] VITALS (55 sets, daily range): BP systolic 101–139; BP diastolic 46–103; PULSE 85–120; RESP 6–29; TEMP 97.3–98; O2SAT 95–100
[2024-05-11] MEDS: HYDROcodone-ACET 5/325MG TAB PO PRN (00:06)
[2024-05-11] MEDS: ALBUTEROL SULF 2.5 MG/0.5ML(0.5%) NEB SOLN NEB PRN (02:27)
[2024-05-11 04:00] LABS: Anion Gap 10 (5-15); Carbon Dioxide 24 mmol/L (20-31)
[2024-05-11 04:01] LABS: Calcium 9.1 mg/dL (8.7-10.4)
[2024-05-11 04:06] LABS: BUN/Creatinine Ratio 10.1 (10.0-20.0); Blood Urea Nitrogen 17 mg/dL (9-23)
[2024-05-11 04:09] LABS: Chloride 113 mmol/L (98-107); Glucose 111 mg/dL (74-106); Potassium 3.3 mmol/L (3.5-5.1); Sodium 147 mmol/L (136-145)
[2024-05-11] MEDS ORDERED: DEXTROSE (50%) 50ML SYRG IV PRN (08:00)
[2024-05-11] MEDS: FUROSEMIDE 20 MG/2 ML VIAL IV ONE (08:00)
[2024-05-11] MEDS: POTASSIUM CHL 20MEQ/100ML 100 ML IV SCH (08:00)
[2024-05-11] MEDS: ALPRAZolam 0.25 MG TAB PO PRN (08:59)
[2024-05-11] MEDS: INSULIN LANTUS (GLARGINE) 1 /0.01ml (100units/ml) SC SCH (09:07)
--- NOTE | 2024-05-11 09:35 | DVHPN2 ---
Subjective Patient denies any symptoms. Reviewed: Care Plan, H&P, Labs, Medications, Previous Orders Changes from previous H/P or p: No Changes General: Per HPI Objective Vitals Vital Signs Date Time Temp Pulse Resp B/P (MAP) Pulse Ox O2 Delivery O2 Flow Rate FiO2 05/11/24 08:00 129/103 05/11/24 06:40 97 Oxymizer 2 N/A 05/11/24 06:35 102 15 05/11/24 05:31 97.9 97.9 Intake/Output Intake and Output 05/11/24 07:00 Intake Total 3025.725 ml Output Total 4000 ml Balance -974.275 ml IV Total 2725.725 ml Tube Feeding 300 ml Output Urine Total 3700 ml Emesis 300 ml General Appearance: Cooperative, moderate distress HEENT: Atraumatic, PERRLA Lungs: Clear to auscultation, Normal air movement, Other Cardiovascular: Normal S1, Normal S2 Abdomen: Normal bowel sounds, Soft, No tenderness Genitourinary: No Apparent Abnormalities Musculoskeletal: Normal sensory function, Normal motor function Neuro: Normal gait, Normal speech Skin: Dry, Intact Psych/Mental Status: Other Medications Current Medications Medications Dose Ordered Sig/Tera Route Start Time Stop Time Status Last Admin Dose Admin Ondansetron HCl 4 mg Q4HP PRN IV 05/06/24 03:30 05/11/24 05:10 4 MG Enoxaparin Sodium 30 mg DAILY SC 05/06/24 10:00 05/10/24 08:52 30 MG Acetaminophen 650 mg Q6HP PRN PO 05/06/24 03:30 Nitroglycerin 0.4 mg Q5MINP PRN SL 05/06/24 03:30 Morphine Sulfate 2 mg Q30M PRN IV 05/06/24 03:30 Albuterol 2.5 mg Q6HPRN PRN NEB 05/06/24 04:15 05/11/24 02:27 2.5 MG Acetaminophen 650 mg Q6HP PRN DC 05/06/24 09:00 UNV Midazolam HCl 50 ml @ 1 mls/hr Q24H IV 05/06/24 09:00 05/08/24 22:14 4 MLS/HR Thiamine HCl 100 mg DAILY IV 05/07/24 10:00 05/10/24 08:51 100 MG Linezolid 300 ml @ 150 mls/hr Q12HR IV 05/10/24 10:00 05/11/24 09:00 150 MLS/HR Labetalol HCl 10 mg Q2HPRN PRN IV 05/10/24 10:00 Metoclopramide HCl 10 mg Q6HPRN PRN IV 05/10/24 18:45 Acetaminophen/ Hydrocodone Bitart 1 tab Q6HPRN PRN PO 05/10/24 23:45 05/11/24 06:57 1 TAB Insulin Glargine 10 units DAILY SC 05/11/24 10:00 Diagnostic Test (Pha) 1 strip ACHS 05/11/24 11:30 Insulin Human Regular ACHS SC 05/11/24 11:30 Dextrose 50 ml UD PRN IV 05/11/24 08:00 Alprazolam 0.25 mg Q8HP PRN PO 05/11/24 08:00 05/11/24 08:59 0.25 MG Potassium Chloride 100 ml @ 50 mls/hr Q2H IV 05/11/24 08:00 05/11/24 11:59 Laboratory Results Laboratory Tests 05/10/24 03:15 05/11/24 03:00 Chemistry Test 05/11/24 03:00 Calcium Level 9.1 mg/dL (8.7-10.4) Urinalysis Test 05/06/24 14:28 05/07/24 10:38 Urine Color Colorless (Yellow) Urine Clarity Ex.turbid (Clear) Urine pH 5.5 (5.0-9.0) Urine Specific [place] 1.001 (1.001-1.035) Urine Protein 1+ (Negative) H Urine Ketones 1+ (Negative) H Urine Blood 2+ /uL (Negative) H Urine Nitrite Negative (Negative) Urine Bilirubin Negative (Negative) Urine Urobilinogen Normal mg/dL (Negative) Urine Leukocyte Esterase 3+ /uL (Negative) Urine RBC 771 /hpf (0 - 4) Urine WBC Clumps Present /hpf (None Seen) Urine Microscopic WBC 1138 /HPF (0-5) H Urine Squamous Epithelial Cells Few /hpf (<5) Urine Bacteria Few /hpf (None Seen) H Urine Mucus Few (None Seen) Urine Yeast (Budding) Loaded /hpf (None Seen) Urine Glucose 4+ mg/dL (Normal) H Urine Osmolality 255 mOsm/kg Urine Creatinine 29.62 mg/dL (30.0-125.0) L Urine Protein/Creatinine Ratio 2.31 Urine Sodium 48 mmol/L (40-220) Urine Total Protein 68.3 mg/dL (1-14) H Blood Gas Results Test 05/10/24 12:35 Arterial Blood pH 7.379 (7.350-7.450) FiO2 % 30.0 Microbiology Microbiology Date/Time Source Procedure Growth Status 05/10/24 09:25 Urine - Catheterized Urine Culture - Preliminary Resulted 05/09/24 17:50 Nose MRSA Screen - Final Methicillin Resistant S.aureus Complete Labs and/or images reviewed: Labs reviewed by me, Image(s) reviewed by me Assessment/Plan Assessment/Plan Impression: -diabetic ketoacidosis -acute respiratory failure with mechanical ventilation -acute kidney injury, vasomotor nephropathy -pseudo hyponatremia -sirs without organ dysfunction -diabetes mellitus -Polysubstance abuse -community-acquired pneumonia with MRSA Plan: Events: Patient extubated yesterday. Now on Oxymizer at 2 liters/minute. Patient was requesting to leave the hospital. Attempted to call the patient's father, Shane at provided number. No answer on his part. Patient's plan of care discussed with her, at which time she continues to want to leave the hospital, but also states that she does not walk. -transferred to telemetry floor -continue antibiotic therapy with vancomycin given MRSA in the sputum -physical therapy -potassium replacement -PUD, DVT prophylaxis -repeat chest x-ray, labs, ABG in a.m. Critical care time spent with patient discussing and formulating plan of care: 40 minutes. This does not include time spent performing procedures. This medical document was created using an electronic medical record system with [employer] dictation system. Although this document has been carefully reviewed, there may still be some phonetic and typographical errors. These areas are purely typographical due to imperfections of the software programs, and do not reflect any compromise in the patient's medical care. Plan discussed with: Patient, Other (RN) My Orders Orders - REEMA KIRK INTERNET MANAGER Procedure Category Date Status Time Cpap Trial For Am ORDERS 05/10/24 Transmitted 09:56 Cpap/Sed Vacation Med ORDERS 05/10/24 Transmitted Weaning 09:56 Labetalol Hcl PHA 05/10/24 In Process (Labetalol Hcl) 10:00 * Swallow Request ST 05/10/24 Transmitted 16:02 Extubate PAT 05/10/24 In Process 14:21 Oxygen Via Cool Mist RT 05/10/24 Transmitted Mask 16:47 Abg W/ Co-Ox RT 05/10/24 Logged 18:00 Oxygen By High-Flow RT 05/10/24 Transmitted 14:45 Chest Portable XY 05/10/24 Resulted 18:19 Metoclopramide PHA 05/10/24 In Process Injection (Reglan 18:45 Insulin Lantus PHA 05/11/24 In Process (Glargine) (Lantus) 10:00 Consistent DIET 05/11/24 Transmitted Carb(Ccho)Diabetes Breakfast Glucose Blood PHA 05/11/24 In Process (Accu-Chek Comfort 11:30 Insulin R (Human) PHA 05/11/24 In Process (Insulin R) 11:30 Dextrose 50% Syringe PHA 05/11/24 In Process 08:00 Alprazolam Tablet PHA 05/11/24 In Process (Xanax Tablet) 08:00 Potassium Chl PHA 05/11/24 In Process 20meq/100ml 08:00 Basic Metabolic Panel LAB 05/12/24 Verified 04:00 Complete Blood Count LAB 05/12/24 Verified 04:00 Chest Portable XY 05/12/24 Logged 04:00 Transfer Orders XFER 05/11/24 Transmitted 09:25 Pt Request For Service PT 05/11/24 Logged 09:25 Date of Service: May 11, 2024 Billing Provider: REEMA KIRK NP Common Visit Codes: [id number] INP/OBS CARE(HIGH) REEMA KIRK NP May 11, 2024 09:35
[2024-05-11] MEDS: InsuLIN REG 1unit/0.01ml Soln (100units/ml) SC SCH (10:56)
[2024-05-11] MEDS: ACCU-CHEK COMFORT CURVE STRIP VI SCH (10:56)
--- NOTE | 2024-05-11 11:26 | DVHPN2 ---
Progress Note Date Seen: May 11, 2024 Medical Necessity Reason Pt with a Central, PICC or Fol: Yes The following are medically ne: Moctezuma Catheter Reason for moctezuma catheter: Strict I&O Subjective Patient reports: Feels better Objective vital signs Vital Sign Date Time Temp Pulse Resp B/P (MAP) Pulse Ox O2 Delivery O2 Flow Rate FiO2 05/11/24 10:00 102 05/11/24 10:00 18 96 Oxymizer 2 N/A 05/11/24 08:00 129/103 05/11/24 05:31 97.9 97.9 Total Intake and Output 05/10/24 05/10/24 05/11/24 15:00 23:00 07:00 Intake Total 1025.725 ml 900 ml 1100 ml Output Total 2200 ml 1800 ml Balance 1025.725 ml -1300 ml -700 ml medications Current Medications Medications Dose Ordered Sig/Tera Route Start Time Stop Time Status Last Admin Dose Admin Ondansetron HCl 4 mg Q4HP PRN IV 05/06/24 03:30 05/11/24 05:10 4 MG Enoxaparin Sodium 30 mg DAILY SC 05/06/24 10:00 05/10/24 08:52 30 MG Acetaminophen 650 mg Q6HP PRN PO 05/06/24 03:30 Nitroglycerin 0.4 mg Q5MINP PRN SL 05/06/24 03:30 Morphine Sulfate 2 mg Q30M PRN IV 05/06/24 03:30 Albuterol 2.5 mg Q6HPRN PRN NEB 05/06/24 04:15 05/11/24 02:27 2.5 MG Acetaminophen 650 mg Q6HP PRN VT 05/06/24 09:00 UNV Midazolam HCl 50 ml @ 1 mls/hr Q24H IV 05/06/24 09:00 05/08/24 22:14 4 MLS/HR Thiamine HCl 100 mg DAILY IV 05/07/24 10:00 05/10/24 08:51 100 MG Linezolid 300 ml @ 150 mls/hr Q12HR IV 05/10/24 10:00 05/11/24 09:00 150 MLS/HR Labetalol HCl 10 mg Q2HPRN PRN IV 05/10/24 10:00 Metoclopramide HCl 10 mg Q6HPRN PRN IV 05/10/24 18:45 Acetaminophen/ Hydrocodone Bitart 1 tab Q6HPRN PRN PO 05/10/24 23:45 05/11/24 06:57 1 TAB Insulin Glargine 10 units DAILY SC 05/11/24 10:00 Diagnostic Test (Pha) 1 strip ACHS 05/11/24 11:30 Insulin Human Regular ACHS SC 05/11/24 11:30 Dextrose 50 ml UD PRN IV 05/11/24 08:00 Alprazolam 0.25 mg Q8HP PRN PO 05/11/24 08:00 05/11/24 08:59 0.25 MG Potassium Chloride 100 ml @ 50 mls/hr Q2H IV 05/11/24 08:00 05/11/24 11:59 Sodium Chloride 1 spr QID EACHNOSTRI 05/11/24 12:00 Examination: GENERAL:Normal laboratory and microbiology Laboratory Tests 05/11/24 03:00 05/10/24 03:15 Test 05/11/24 03:00 Range/Units Serum Glucose 111 H 74-106 mg/dL Microbiology Date/Time Source Procedure Growth Status 05/10/24 09:25 Urine - Catheterized Urine Culture - Preliminary Resulted 05/09/24 17:50 Nose MRSA Screen - Final Methicillin Resistant S.aureus Complete Problem List/Assessment/Plan Problem List/Assessment/Plan Acute kidney injury superimposed Chronic Kidney Disease secondary hemodynamic mediated Acute respiratory failure extubated Diabetic ketoacidosis Sepsis Urinary tract infection Pneumonia Hypoalbuminemia Polysubstance abuse Anemia of chronic kidney disease Hypomagnesemia Hypophosphatemia extubated seen in ICU resting comfortably Kidney function is improving Increased urine output Moctezuma catheter Strict I&Os I agree with IV fluid hydration K-Phos IV piggyback Magnesium sulfate IV piggyback Kidney ultrasound reported no obstruction IV antibiotic Plan discussed with: Patient Dietary Evaluation Review Comments: 1. If NPO > 7 days, TPN per pharmacy. 2. If EN/GI accessible, TF Nepro @25ml/hr (49g pro, 1062 kcal), offering prt's needs at 136% pro, 88% kcal. 3. If off vent,passes speech eval, advance to CCHO-60 Renal diet either standard (higher protein) or sepcific- protein restricted depending if pt needs dialysis. Expected Outcomes/Goals: controlled DM, less uremic synptoms. FRANK BARAJAS MD May 11, 2024 11:25
[2024-05-11] MEDS: SALINE 0.65 % NASAL SPRAY 45ML BOTTLE EACHNOSTRI SCH (12:36)
--- NOTE | 2024-05-11 20:21 | DVHPN2 ---
Progress Note - Dictate Date Seen: May 11, 2024 Medical Necessity Reason Pt with a Central, PICC or Fol: Yes The following are medically ne: Moctezuma Catheter Reason for moctezuma catheter: Strict I&O Subjective Patient seen and examined at bedside. Remains on supplemental oxygen Overnight events reviewed. vital signs Vital Sign Date Time Temp Pulse Resp B/P (MAP) Pulse Ox O2 Delivery O2 Flow Rate FiO2 05/11/24 16:32 104 12 127/92 (104) 05/11/24 16:00 95 Nasal Cannula* 3 32 05/11/24 15:32 97.8 97.8 Total Intake and Output 05/10/24 05/10/24 05/11/24 15:00 23:00 07:00 Intake Total 1025.725 ml 900 ml 1100 ml Output Total 2200 ml 1800 ml Balance 1025.725 ml -1300 ml -700 ml medications Current Medications Medications Dose Ordered Sig/Tera Route Start Time Stop Time Status Last Admin Dose Admin Ondansetron HCl 4 mg Q4HP PRN IV 05/06/24 03:30 05/11/24 05:10 4 MG Enoxaparin Sodium 30 mg DAILY SC 05/06/24 10:00 05/10/24 08:52 30 MG Acetaminophen 650 mg Q6HP PRN PO 05/06/24 03:30 Nitroglycerin 0.4 mg Q5MINP PRN SL 05/06/24 03:30 Morphine Sulfate 2 mg Q30M PRN IV 05/06/24 03:30 Albuterol 2.5 mg Q6HPRN PRN NEB 05/06/24 04:15 05/11/24 02:27 2.5 MG Acetaminophen 650 mg Q6HP PRN ME 05/06/24 09:00 UNV Midazolam HCl 50 ml @ 1 mls/hr Q24H IV 05/06/24 09:00 05/08/24 22:14 4 MLS/HR Thiamine HCl 100 mg DAILY IV 05/07/24 10:00 05/10/24 08:51 100 MG Linezolid 300 ml @ 150 mls/hr Q12HR IV 05/10/24 10:00 05/11/24 09:00 150 MLS/HR Labetalol HCl 10 mg Q2HPRN PRN IV 05/10/24 10:00 Metoclopramide HCl 10 mg Q6HPRN PRN IV 05/10/24 18:45 Acetaminophen/ Hydrocodone Bitart 1 tab Q6HPRN PRN PO 05/10/24 23:45 05/11/24 14:35 1 TAB Insulin Glargine 10 units DAILY SC 05/11/24 10:00 Diagnostic Test (Pha) 1 strip ACHS 05/11/24 11:30 05/11/24 16:36 1 STRIP Insulin Human Regular ACHS SC 05/11/24 11:30 05/11/24 16:39 3 UNITS Dextrose 50 ml UD PRN IV 05/11/24 08:00 Alprazolam 0.25 mg Q8HP PRN PO 05/11/24 08:00 05/11/24 08:59 0.25 MG Sodium Chloride 1 spr QID EACHNOSTRI 05/11/24 12:00 05/11/24 16:36 1 SPR objective Gen.: Patient lying in bed in no apparent distress. On supplemental oxygen. Head: Normocephalic, atraumatic. Eyes: EOMI/PERRLA. Ears: Normal hearing. Normal anatomy. Neck/trachea: Trachea midline, supple. Nose: Normal external anatomy. Mouth: Moist mucous membranes. Chest: Decreased air entry bilaterally. No wheezing or rhonchi. Cardiovascular: Positive S1, positive S2. Regular rate and rhythm. Abdomen: Positive bowel sounds in all 4 quadrants. Soft, non-tender, non- distended. : Deferred. Rectal: Deferred. Skin: Warm, dry. Intact. Extremities: 2+ radial pulses bilaterally. No lower extremity edema. Neuro: Awake, alert, oriented x3. No gross motor or sensory deficits. Cranial nerves II through XII intact. Gait not assessed. laboratory and microbiology Laboratory Tests 05/11/24 03:00 05/10/24 03:15 Test 05/11/24 03:00 Range/Units Serum Glucose 111 H 74-106 mg/dL Assessment/Plan Impression: Acute hypoxic respiratory failure Pneumonia, likely gram negative Diabetic ketoacidosis Methamphetamine abuse Atelectasis Events: Remains on supplemental O2, Tapered off high flow - currently on 3 LPM NC Taper O2 as tolerated Continue antibiotics Continue bronchodilators Incentive spirometry Accu-Cheks, ISS Patient is stable for downgrade from the pulmonary standpoint Labs and imaging reviewed. Rest of plan as noted below. Plan: s/p extubation on 05/10/24 Supplemental oxygen Titrate to keep O2 sats above 92%. Off sedation Off pressors, hemodynamically stable. Bronchodilators PRN Continue antibiotics. F/u cultures - MRSA positive. Pressors if necessary for hemodynamic support Titrate to keep mean arterial pressure greater than 65 mmHg. Monitor renal function Monitor electrolytes. Supplement as necessary. Monitor ins and outs. Maintain euvolemia. GI prophylaxis. DVT prophylaxis. Prognosis: Poor given patient's multiple co-morbidities. Rest of plan per hospitalist and other consultants. Thank you Dr. Henderson for allowing me to participate in this patient's care. Further recommendations will depend on the patient's clinical course. Please do not hesitate to contact me if you have any questions or concerns. This medical document was created using an electronic medical record system with [employer] dictation system. Although these documentations are being carefully reviewed, there may still be some phonetic and typographical changes. The errors are purely typographical, due to imperfection on the software program, and do not reflect any compromise in the patient's medical care. Dietary Evaluation Review Comments: 1. If NPO > 7 days, TPN per pharmacy. 2. If EN/GI accessible, TF Nepro @25ml/hr (49g pro, 1062 kcal), offering prt's needs at 136% pro, 88% kcal. 3. If off vent,passes speech eval, advance to CCHO-60 Renal diet either standard (higher protein) or sepcific- protein restricted depending if pt needs dialysis. Expected Outcomes/Goals: controlled DM, less uremic synptoms. Plan discussed with: Patient, Other (BART Tubbs) CONSUELO CUENCA MD May 11, 2024 20:21
[2024-05-12] VITALS (10 sets, daily range): BP systolic 111–133; BP diastolic 67–100; PULSE 101–110; RESP 14–19; TEMP 97.7–98.6; O2SAT 94–100
[2024-05-12 05:32] LABS: Hemoglobin 7.9 g/dL (12.2-16.2)
--- NOTE | 2024-05-12 05:34 | DVH ---
CHEST RADIOGRAPH Indication: pna Technique: Single frontal view of the chest was obtained COMPARISON: XY CHEST PORTABLE on DOS: 05/10/24, XY CHEST PORTABLE on DOS: 05/10/24, XY CHEST PORTABLE o n DOS: 05/09/24, XY CHEST PORTABLE on DOS: 05/08/24, XY CHEST PORTABLE on DOS: 05/07/24 FINDINGS: Lines and Tubes: None Lungs: Diffuse increased interstitial prominence. Pleura: No effusion. No pneumothorax. Cardiomediastinal contours: Unremarkable Bones: Unremarkable IMPRESSION: Pulmonary vascular congestion versus viral pneumonia, unchanged.
[2024-05-12 05:38] LABS: Mean Corpuscular Hemoglobin 27.1 pg (28.0-32.0); Mean Corpuscular Hgb Conc. 32.9 g/dL (32.0-36.0); Mean Corpuscular Volume 82.3 fL (80.0-100.0); Platelet Count (auto) 153 10^3/uL (140-450); Red Blood Cells 2.91 10^6/uL (4.0-5.20); Red Cell Distribution Width 15.7 % (11.8-14.3); White Blood Cell 6.4 10^3/uL (4.4-10.8)
[2024-05-12 05:42] LABS: Chloride 105 mmol/L (98-107); Potassium 3.5 mmol/L (3.5-5.1); Sodium 137 mmol/L (136-145)
[2024-05-12 05:43] LABS: Anion Gap 9 (5-15); Basophils % (manual) 0 (0.0-2.0); Blast Cells 0; Calcium 8.7 mg/dL (8.7-10.4); Carbon Dioxide 23 mmol/L (20-31); Eosinophils % (manual) 0 (0-7); Metamyelocytes % 0; Promyelocytes % 0; Reactive Lymphocytes 0
[2024-05-12 05:48] LABS: BUN/Creatinine Ratio 9.4 (10.0-20.0); Blood Urea Nitrogen 16 mg/dL (9-23)
[2024-05-12 05:49] LABS: Glucose 272 mg/dL (74-106)
[2024-05-12 06:22] LABS: Band Neutrophils % (manual) 5; Lymphocytes % (manual) 16 (10.0-50.0); Monocytes % (manual) 8 (0-12); Myelocytes % 2
[2024-05-12 06:23] LABS: Platelet Estimate Adequate
[2024-05-12] MEDS: FUROSEMIDE 20 MG/2 ML VIAL IV ONE (10:55)
[2024-05-12] MEDS ORDERED: BACDST PO (12:13)
--- NOTE | 2024-05-12 12:42 | DVHPN2 ---
Progress Note Date Seen: May 12, 2024 Medical Necessity Reason Pt with a Central, PICC or Fol: Yes The following are medically ne: Moctezuma Catheter Reason for moctezuma catheter: Strict I&O Subjective Patient reports: Feels better Objective vital signs Vital Sign Date Time Temp Pulse Resp B/P (MAP) Pulse Ox O2 Delivery O2 Flow Rate FiO2 05/12/24 10:55 111/76 05/12/24 09:00 98.4 104 17 96 98.4 05/12/24 08:45 Room Air 0.0 05/12/24 08:45 21 Total Intake and Output 05/11/24 05/11/24 05/12/24 15:00 23:00 07:00 Intake Total 300 ml 700 ml 1280 ml Output Total 600 ml 600 ml Balance 300 ml 100 ml 680 ml medications Current Medications Medications Dose Ordered Sig/Tera Route Start Time Stop Time Status Last Admin Dose Admin Ondansetron HCl 4 mg Q4HP PRN IV 05/06/24 03:30 05/11/24 05:10 4 MG Enoxaparin Sodium 30 mg DAILY SC 05/06/24 10:00 05/12/24 10:55 30 MG Acetaminophen 650 mg Q6HP PRN PO 05/06/24 03:30 Nitroglycerin 0.4 mg Q5MINP PRN SL 05/06/24 03:30 Morphine Sulfate 2 mg Q30M PRN IV 05/06/24 03:30 Albuterol 2.5 mg Q6HPRN PRN NEB 05/06/24 04:15 05/12/24 03:15 2.5 MG Acetaminophen 650 mg Q6HP PRN NC 05/06/24 09:00 UNV Midazolam HCl 50 ml @ 1 mls/hr Q24H IV 05/06/24 09:00 05/08/24 22:14 4 MLS/HR Thiamine HCl 100 mg DAILY IV 05/07/24 10:00 05/12/24 10:53 100 MG Linezolid 300 ml @ 150 mls/hr Q12HR IV 05/10/24 10:00 05/12/24 10:53 150 MLS/HR Labetalol HCl 10 mg Q2HPRN PRN IV 05/10/24 10:00 Metoclopramide HCl 10 mg Q6HPRN PRN IV 05/10/24 18:45 Acetaminophen/ Hydrocodone Bitart 1 tab Q6HPRN PRN PO 05/10/24 23:45 05/12/24 03:41 1 TAB Insulin Glargine 10 units DAILY SC 05/11/24 10:00 05/12/24 11:14 10 UNITS Diagnostic Test (Pha) 1 strip ACHS 05/11/24 11:30 05/12/24 11:14 1 STRIP Insulin Human Regular ACHS SC 05/11/24 11:30 05/12/24 12:36 6 UNITS Dextrose 50 ml UD PRN IV 05/11/24 08:00 Alprazolam 0.25 mg Q8HP PRN PO 05/11/24 08:00 05/12/24 01:06 0.25 MG Sodium Chloride 1 spr QID EACHNOSTRI 05/11/24 12:00 05/12/24 05:32 1 SPR Examination: GENERAL:Normal laboratory and microbiology Laboratory Tests 05/12/24 04:47 Test 05/12/24 04:47 Range/Units Serum Glucose 272 H 74-106 mg/dL Microbiology Date/Time Source Procedure Growth Status 05/10/24 09:25 Urine - Catheterized Urine Culture - Preliminary Resulted 05/09/24 17:50 Nose MRSA Screen - Final Methicillin Resistant S.aureus Complete Problem List/Assessment/Plan Problem List/Assessment/Plan Acute kidney injury superimposed Chronic Kidney Disease secondary hemodynamic mediated Acute respiratory failure extubated Diabetic ketoacidosis Sepsis Urinary tract infection Pneumonia Hypoalbuminemia Polysubstance abuse Anemia of chronic kidney disease Hypomagnesemia Hypophosphatemia extubated yesterday on medical floor now Kidney function stable Kidney ultrasound reported no obstruction from renal standpoint no indication for hemodialysis, renal function is now improved Agree patient can use diuretic therapy to prevent fluid overload. I will sign off the case. Reconsult if you have further questions or if condition changes Plan discussed with: Patient Dietary Evaluation Review Comments: 1. If NPO > 7 days, TPN per pharmacy. 2. If EN/GI accessible, TF Nepro @25ml/hr (49g pro, 1062 kcal), offering prt's needs at 136% pro, 88% kcal. 3. If off vent,passes speech eval, [facility] Ren[facility] diet either standard (higher protein) or sepcific- protein restricted depending if pt needs dialysis. Expected Outcomes/Goals: controlled DM, less uremic synptoms. FRANK BARAJAS MD May 12, 2024 12:42
--- NOTE | 2024-05-12 13:16 | DVHDS2 ---
Discharge Summary Date of Admission May 06, 2024 at 03:27 Date of Discharge: May 12, 2024 Admitting Diagnosis Diabetic ketoacidosis Labs/Diagnostic Data: Laboratory Results Test 05/12/24 11:00 05/12/24 04:47 05/10/24 12:35 05/10/24 03:15 POC Glucose 295 mg/dl (70-106) White Blood Count 6.4 10^3/uL (4.4-10.8) Red Blood Count 2.91 10^6/uL (4.0-5.20) Hemoglobin 7.9 g/dL (12.2-16.2) Hematocrit 24.0 % (36.0-46.0) Mean Corpuscular Volume 82.3 fL (80.0-100.0) Mean Corpuscular Hemoglobin 27.1 pg (28.0-32.0) Mean Corpuscular Hemoglobin Concent 32.9 g/dL (32.0-36.0) Red Cell Distribution Width 15.7 % (11.8-14.3) Platelet Count 153 10^3/uL (140-450) Mean Platelet Volume 8.3 fL (6.9-10.8) Neutrophils (%) (Auto) % (37.0-80.0) Lymphocytes (%) (Auto) % (10.0-50.0) Monocytes (%) (Auto) % (0.0-12.0) Basophils (%) (Auto) % (0.0-2.0) Neutrophils # (Auto) 10 ^3/uL (1.6-8.6) Lymphocytes # (Auto) 10 ^3/uL (0.4-5.4) Monocytes # (Auto) 10 ^3/uL (0-1.3) Differential Total Cells Counted 100.0 (100) Neutrophils % (Manual) 69 (37.0-80.0) Band Neutrophils % (Manual) 5 Lymphocytes % (Manual) 16 (10.0-50.0) Monocytes % (Manual) 8 (0-12) Eosinophils % (Manual) 0 (0-7) Basophils % (Manual) 0 (0.0-2.0) Metamyelocytes % (manual) 0 Myelocytes % (Manual) 2 Promyelocytes % (Manual) 0 Blast Cells % (Manual) 0 Reactive Lymphocytes 0 Platelet Estimate Adequate Sodium Level 137 mmol/L (136-145) Potassium Level 3.5 mmol/L (3.5-5.1) Chloride Level 105 mmol/L (98-107) Carbon Dioxide Level 23 mmol/L (20-31) Anion Gap 9 (5-15) Blood Urea Nitrogen 16 mg/dL (9-23) Creatinine 1.71 mg/dL (0.550-1.02) Glomerular Filtration Rate Calc 39 mL/min (>90) BUN/Creatinine Ratio 9.4 (10.0-20.0) Serum Glucose 272 mg/dL (74-106) Calcium Level 8.7 mg/dL (8.7-10.4) Blood Gas Specimen Type Arterial Blood Gas Sample Site Right radial Blood Gas Patient Temperature 37.0 Arterial Blood Date Drawn [id number] Arterial Blood pH 7.379 (7.350-7.450) Arterial Blood Partial Pressure CO2 36.3 mmHg (32.0-45.0) Arterial Blood Partial Pressure O2 79.9 mmHg (83.0-108.0) Arterial Blood HCO3 20.9 mmol/L (21.0-28.0) Arterial Blood Oxygen Saturation 94.9 % (94.0-98.0) Arterial Blood Base Excess -3.7 mmol/L (-2.0-3.0) Arterial Blood Oxyhemoglobin 94.5 % (94.0-98.0) Arterial Blood Carboxyhemoglobin 0.3 % (0.5-1.5) Arterial Blood Methemoglobin 0.1 % (0.0-1.5) Tom Test Modified Blood Gas Total Hemoglobin 10.60 g/dL (12.0-16.0) Blood Gas Modality Vent - cpap Blood Gas Spontaneous Rate 15 FiO2 % 30.0 Blood Gas Spontaneous Tidal Volume 500 Blood Gas Pressure Support 8 Blood Gas PEEP or CPAP 5.0 Eosinophils (%) (Auto) 0.7 % (0.0-7.0) Eosinophils # (Auto) 0.1 10 ^3/uL (0-0.8) Basophils # (Auto) 0 10 ^3/uL (0-0.2) Nucleated Red Blood Cells 0.1 % Total Bilirubin 0.3 mg/dL (0.2-1.0) Aspartate Amino Transferase (AST) 142 U/L (13-40) Alanine Aminotransferase (ALT) 96 U/L (7-40) Alkaline Phosphatase 243 U/L (46-116) Total Protein 4.7 g/dL (5.7-8.2) Albumin 2.6 g/dL (3.2-4.8) Test 05/08/24 08:25 05/07/24 13:00 05/07/24 10:38 05/06/24 22:33 Blood Gas Set Respiration Rate 16.0 Blood Gas Tidal Volume 400.0 Phosphorus Level 3.3 mg/dL (2.4-5.1) Magnesium Level 2.0 mg/dL (1.6-2.6) Urine Osmolality 255 mOsm/kg Urine Creatinine 29.62 mg/dL (30.0-125.0) Urine Protein/Creatinine Ratio 2.31 Urine Sodium 48 mmol/L (40-220) Urine Total Protein 68.3 mg/dL (1-14) Blood Gas Inspiratory Pressure 15.0 Bl Gas Inspiratory/Expiratory Ratio 1:3 Test 05/06/24 14:28 05/06/24 04:33 05/06/24 01:26 05/06/24 01:25 Urine Color Colorless (Yellow) Urine Clarity Ex.turbid (Clear) Urine pH 5.5 (5.0-9.0) Urine Specific Lowber 1.001 (1.001-1.035) Urine Protein 1+ (Negative) Urine Ketones 1+ (Negative) Urine Blood 2+ /uL (Negative) Urine Nitrite Negative (Negative) Urine Bilirubin Negative (Negative) Urine Urobilinogen Normal mg/dL (Negative) Urine Leukocyte Esterase 3+ /uL (Negative) Urine RBC 771 /hpf (0 - 4) Urine WBC Clumps Present /hpf (None Seen) Urine Microscopic WBC 1138 /HPF (0-5) Urine Squamous Epithelial Cells Few /hpf (<5) Urine Bacteria Few /hpf (None Seen) Urine Mucus Few (None Seen) Urine Yeast (Budding) Loaded /hpf (None Seen) Urine Glucose 4+ mg/dL (Normal) Urine Opiates Screen Pos (NEGATIVE) Urine Fentanyl Screen Pos (NEGATIVE) Urine Barbiturates Screen Neg (NEGATIVE) Urine Phencyclidine Screen Neg (NEGATIVE) Urine Amphetamines Screen Pos (NEGATIVE) Urine Benzodiazepines Screen Pos (NEGATIVE) Urine Cocaine Screen Neg (NEGATIVE) Urine Cannabinoids Screen Neg (NEGATIVE) Blood Gas Critical Value Read Back Yes Blood Gas Notified Whom Krish be md Blood Gas Notified Time [id number] Blood Gas Notified By Equal Opportunity Officer sienna segal Serum Osmolality 333 mOsm/kg (278-298) Lactic Acid Level 1.5 mmol/L (0.4-2.0) Lipase 27 U/L (12-53) Beta-Hydroxybutyric Acid > 4.500 mmol/L (< 0.4) Venous Blood pH 7.054 (7.320-7.430) Venous Blood pCO2 at Patient Temp 15.4 mmHg (38.0-54.0) Venous Blood pO2 at Patient Temp 48.7 mmHg (23.0-48.0) Venous Blood HCO3 4.2 mmol/L (22.0-29.0) Venous Blood Base Excess -24.2 mmol/L (-2.0-3.0) Specimen Drawn By Ying decker rn Other Laboratory Tests 05/12/24 04:47 Brief Hx & Hospital Course: History of Present Illness 39-year-old female with a history of diabetes mellitus presents for evaluation of hyperglycemia. Patient was noted to be lethargic by family so EMS was called. On arrival patient's blood sugar was greater than 600 blood pressure in the 70s. Patient became progressively more confused in the emergency department requiring emergent intubation for airway protection. Course of hospitalization: Patient was treated with insulin drip per protocol, transitioned to long-acting insulin as well as regular insulin sliding scale. Patient was successfully extubated from the ventilator. Patient was found to have positive MRSA in the sputum, for which was transitioned to IV vancomycin. Patient was white blood cell count has improved. Patient was now on room air with a saturation of 96%. She was requesting to be discharged home as his her father. Patient will follow up with her PCP in [facility] at next earliest appointment. She will be continued on Bactrim DS one tablet twice a day for seven days. She was instructed to continue all previous home medications. All questions answered. Physical examination General: Alert and Oriented x3. No acute distress. Well-nourished. Eyes: EOMI. Anicteric. HENT: Moist mucous membranes. Lungs: Clear to auscultation bilaterally. No accessory muscle use. Cardiovascular: Regular rate and rhythm. No murmur. No JVD. Abdomen: Soft, non-tender and non-distended. No palpable masses. Extremities: No edema. Non-tender. Skin: No rashes or lesions. Warm. Neurologic: No focal neurological deficits. CN II-XII grossly intact, but not individually tested. Psychiatric: Cooperative. Appropriate mood and affect. Total time spent with patient discussing and formulating plan of care: 35 minutes. This medical document was created using an electronic medical record system with [employer] system. Although this document has been carefully reviewed, there may still be some phonetic and typographical errors. These areas are purely typographical due to imperfections of the software programs, and do not reflect any compromise in the patient's medical care. Consults/Reason for consult Nephrology: Acute kidney injury Pulmonology: Acute respiratory failure Condition at Discharge: Fair Final Diagnosis/Problems List Diabetic ketoacidosis Secondary Diagnosis: -diabetic ketoacidosis -acute respiratory failure with mechanical ventilation -acute kidney injury, vasomotor nephropathy -pseudo hyponatremia -sirs without organ dysfunction -diabetes mellitus -Polysubstance abuse -community-acquired pneumonia with MRSA Discharge Disposition: Home Discharge Instruct/Medications Diet: Consistent carbohydrate Activity: No Restrictions, As Tolerated Follow Up/Referral: Follow up with PCP at earliest appointment available Medications: Continue all home medications previously prescribed. Bactrim DS one tab b.i.d. times seven days 36 Discharge Statement: "Patient was advised to return to the ER or call 911 if any headaches, dizziness, shortness of breath, chest pain, abdominal pain, bleeding, fevers, or worsening of medical condition. Patient was counseled about treatment plan, medications, possible side effects, patientverbalized understanding. All questions were answered to the best of my ability. This discharge took greater then 30 minutes in planning, reviewing documentation, counseling the patient, and discussing with other team members." ASSESSMENT ASSESSMENT Assessment Diabetic ketoacidosis Date of Service: May 12, 2024 Billing Provider: REEMA KIRK NP Common Visit Codes: 82624-VWW/OBS DISCH DAY >30min REEMA KIRK NP May 12, 2024 13:16
--- NOTE | 2024-05-12 23:47 | DVHPN2 ---
Progress Note - Dictate Date Seen: May 12, 2024 Medical Necessity Reason Pt with a Central, PICC or Fol: Yes The following are medically ne: Moctezuma Catheter Reason for moctezuma catheter: Strict I&O Subjective Patient seen and examined at bedside. Breathing on room air Overnight events reviewed. vital signs Vital Sign Date Time Temp Pulse Resp B/P (MAP) Pulse Ox O2 Delivery O2 Flow Rate FiO2 05/12/24 13:00 98.6 110 18 120/86 (97) 96 98.6 05/12/24 08:45 Room Air 0.0 05/12/24 08:45 21 Total Intake and Output 05/11/24 05/11/24 05/12/24 15:00 23:00 07:00 Intake Total 300 ml 700 ml 1280 ml Output Total 600 ml 600 ml Balance 300 ml 100 ml 680 ml medications Current Medications Medications Dose Ordered Sig/Tera Route Start Time Stop Time Status Last Admin Dose Admin Acetaminophen 650 mg Q6HP PRN HI 05/06/24 09:00 UNV objective Gen.: Patient lying in bed in no apparent distress. On room air Head: Normocephalic, atraumatic. Eyes: EOMI/PERRLA. Ears: Normal hearing. Normal anatomy. Neck/trachea: Trachea midline, supple. Nose: Normal external anatomy. Mouth: Moist mucous membranes. Chest: Decreased air entry bilaterally. No wheezing or rhonchi. Cardiovascular: Positive S1, positive S2. Regular rate and rhythm. Abdomen: Positive bowel sounds in all 4 quadrants. Soft, non-tender, non- distended. : Deferred. Rectal: Deferred. Skin: Warm, dry. Intact. Extremities: 2+ radial pulses bilaterally. No lower extremity edema. Neuro: Awake, alert, oriented x3. No gross motor or sensory deficits. Cranial nerves II through XII intact. Gait not assessed. laboratory and microbiology Laboratory Tests 05/12/24 04:47 Test 05/12/24 04:47 Range/Units Serum Glucose 272 H 74-106 mg/dL Assessment/Plan Impression: Acute hypoxic respiratory failure Pneumonia, likely gram negative Diabetic ketoacidosis Methamphetamine abuse Atelectasis Events: Tapered off supplemental oxygen- currently on room air. Supplemental oxygen PRN Continue antibiotics Continue bronchodilators Incentive spirometry Accu-Cheks, ISS Patient is stable for discharge from the pulmonary standpoint Labs and imaging reviewed. Rest of plan as noted below. Plan: s/p extubation on 05/10/24 Supplemental oxygen PRN Titrate to keep O2 sats above 92%. Off sedation Off pressors, hemodynamically stable. Bronchodilators PRN Continue antibiotics. F/u cultures - MRSA positive. Pressors if necessary for hemodynamic support Titrate to keep mean arterial pressure greater than 65 mmHg. Monitor renal function Monitor electrolytes. Supplement as necessary. Monitor ins and outs. Maintain euvolemia. GI prophylaxis. DVT prophylaxis. Prognosis: Guarded given patient's multiple co-morbidities. Rest of plan per hospitalist and other consultants. Thank you Dr. Henderson for allowing me to participate in this patient's care. Further recommendations will depend on the patient's clinical course. Please do not hesitate to contact me if you have any questions or concerns. This medical document was created using an electronic medical record system with [employer] dictation system. Although these documentations are being carefully reviewed, there may still be some phonetic and typographical changes. The errors are purely typographical, due to imperfection on the software program, and do not reflect any compromise in the patient's medical care. Dietary Evaluation Review Comments: 1. If NPO > 7 days, TPN per pharmacy. 2. If EN/GI accessible, TF Nepro @25ml/hr (49g pro, 1062 kcal), offering prt's needs at 136% pro, 88% kcal. 3. If off vent,passes speech eval, advance to CCHO-60 Renal diet either standard (higher protein) or sepcific- protein restricted depending if pt needs dialysis. Expected Outcomes/Goals: controlled DM, less uremic synptoms. Plan discussed with: Patient, Other (BART Roman) CONSUELO CUENCA MD May 12, 2024 23:47
--- NOTE | 2024-05-13 10:19 | ECG ---
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
== END 2024-05-12 15:04 | disposition home or self-care (01) | DRG 720 ==
LOC: EDBD 01:06 → ER 01:06 → TELE 03:27 → ICU WEST 05-09 17:40 → TELE-CENTR 05-11 17:51
PROVIDERS: ADMIT Internal Medicine; ATTEND Nurse Practitioner Acute Care
PROC: 5A1955Z Respiratory Ventilation, Greater than 96 Consecutive Hours (ICD-10-PCS; principal; 2024-05-06)
PROC: 0BH17EZ Insertion of Endotracheal Airway into Trachea, Via Natural or Artificial Opening (ICD-10-PCS; 2024-05-06)
PROC: 06HY33Z Insertion of Infusion Device into Lower Vein, Percutaneous Approach (ICD-10-PCS; 2024-05-06)
PROC: 04HY32Z Insertion of Monitoring Device into Lower Artery, Percutaneous Approach (ICD-10-PCS; 2024-05-10)
PROC: 05HM33Z Insertion of Infusion Device into Right Internal Jugular Vein, Percutaneous Approach (ICD-10-PCS; 2024-05-10)
PROC: B543ZZA Ultrasonography of Right Jugular Veins, Guidance (ICD-10-PCS; 2024-05-10)
PROC: 5A0935A Assistance with Respiratory Ventilation, Less than 24 Consecutive Hours, High Flow/Velocity Cannula (ICD-10-PCS; 2024-05-10)
DX: A41.9 Sepsis, unspecified organism (principal); J96.01 Acute respiratory failure with hypoxia; N17.0 Acute kidney failure with tubular necrosis; E11.11 Type 2 diabetes mellitus with ketoacidosis with coma; R65.21 Severe sepsis with septic shock; G93.41 Metabolic encephalopathy; J15.212 Pneumonia due to Methicillin resistant Staphylococcus aureus; E88.09 Other disorders of plasma-protein metabolism, not elsewhere classified; E87.1 Hypo-osmolality and hyponatremia; E86.0 Dehydration; E11.22 Type 2 diabetes mellitus with diabetic chronic kidney disease; N39.0 Urinary tract infection, site not specified; E83.39 Other disorders of phosphorus metabolism; E83.42 Hypomagnesemia; F15.10 Other stimulant abuse, uncomplicated; N18.9 Chronic kidney disease, unspecified; D63.1 Anemia in chronic kidney disease; Z79.899 Other long term (current) drug therapy; Z79.4 Long term (current) use of insulin
CPT/HCPCS: 31500; 36415; 36556; 36600; 36620; 70450; 71045; 76775; 80048; 80053; 80307; 81001; 82010; 82570; 82805; 82962; 83605; 83690; 83735; 83930; 83935; 84100; 84156; 84300; 85007; 85025; 85027; 87070; 87077; 87081; 87086; 87088; 87186; 87205; 92610; 93005; 94002; 94003; 94640; 97110; 97163; 97530; 99291; G0378; J1815; J2405; J2704; J3480; J3490; J7060

== ENCOUNTER 2024-05-15 08:03 | Emergency (ER) | payer OTHER ==
[~2024-05-15] VITALS: Ht 165.1 cm; Wt 64.0 kg
[~2024-05-15 08:03] MED LIST: BACDST PO
[2024-05-15 09:13] VITALS: BP 115/85; PULSE 103; RESP 16; TEMP 98.7; O2SAT 96
--- NOTE | 2024-05-15 09:18 | ED.PDOC ---
Musculoskeletal HPI Comments A 39 YEAR OLD FEMALE PRESENTS TO THE ED WITH COMPLAINT OF BILATERAL LOWER LEG AND FOOT SWELLING. PATIENT STATES SHE HAS BEEN EXPERIENCING BILATERAL LOWER LEG AND FOOT SWELLING WITH REDNESS FOR THE PAST 3 DAYS. PATIENT NOTES THAT SHE WAS ADMITTED TO THIS HOSPITAL 7 DAYS AGO FOR DKA AND BEGAN TO HAVE A DEVELOP HER SWELLING AFTER SHE WAS DISCHARGED 3 DAYS AGO. PATIENT DENIES FEVER, CHILLS, SHORTNESS OF BREATH, CHEST PAIN, ABDOMINAL PAIN, NAUSEA, VOMITING, HEADACHE, OR OTHER COMPLAINTS. NO OTHER SYMPTOMS OR MODIFYING FACTORS AT THIS TIME. PATIENT IS ALERT, ORIENTED X 4, AND HAS STEADY GAIT. Chief Complaint: Extremity Swelling Time Seen by MD: 08:11 Reviewed Notes: Nurses Notes, Medications, Allergies Allergies: Coded Allergies: NO KNOWN ALLERGIES (Unverified , 05/06/24) Home Meds Active Scripts Sulfamethoxazole W/Trimethopri (Bactrim Ds Tablet) 1 Tab Tb, 1 TAB PO BID for 7 Days, #14 TAB Prov:REEMA KIRK LAP HAND TOOL 05/12/24 Information Source: Patient Mode of Arrival: Ambulatory Location: Bilateral Extremity Location: Ankle, Foot, Leg Timing: Days Prehospital treatment: None Severity: Moderate Able to Move Extremity: Yes Bear Weight: Fully Pain: Moderate Mechanism: No Trauma, Spontaneous Circumstances: Spontaneous Onset of Symptoms: Spontaneous Symptoms: Swelling, Erythema DVT Risk Factors: NONE Last Tetanus: Unknown Associated signs and symptoms: Ankle pain, Leg pain, Foot pain Past Medical History PAST MEDICAL HISTORY: DM Surgical History: Denies all surgeries MINER PLACER History: Denies all MINER PLACER Hx Family History Family History: Reviewed,noncontributory to illness Social History Smoker: Non-Smoker Alcohol: Denies ETOH Use Drugs: Methamphetamine Lives In: Home Constitutional: denies: chills, diaphoresis, fatigue, fever, malaise, sweats, weakness, others EENTM: denies: blurred vision, double vision, ear bleeding, ear discharge, ear drainage, ear pain, ear ringing, eye pain, eye redness, hearing loss, mouth pain, mouth swelling, nasal discharge, nose bleeding, nose congestion, nose pain, photophobia, tearing, throat pain, throat swelling, voice changes, others Respiratory: denies: cough, hemoptysis, orthopnea, SOB at rest, shortness of breath, SOB with excertion, stridor, wheezing, others Cardiovascular: denies: chest pain, dizzy spells, diaphoresis, Dyspnea on exertion, edema, irregular heart beat, left arm pain, lightheadedness, palpitations, PND, syncope, others Gastrointestinal: denies: abdomen distended, abdominal pain, blood streaked bowels, constipated, diarrhea, dysphagia, difficulty swallowing, hematemesis, melena, nausea, poor appetite, poor fluid intake, rectal bleeding, rectal pain, vomiting, others Genitourinary: denies: abnormal vagina bleeding, burning, dyspareunia, dysuria, flank pain, frequency, hematuria, incontinence, pain, , vagina discharge, urgency, others Neurological: denies: dizziness, fainting, headache, left sided numbness, left sided weakness, numbness, paresthesia, pre-existing deficit, right sided numbness, right sided weakness, seizure, speech problems, tingling, tremors, weakness, others Musculoskeletal: reports: others (BILATERAL LOWER LEG SWELLING); denies: back pain, gout, joint pain, joint swelling, muscle pain, muscle stiffness, neck pain Integumetry: reports: others (BILATERAL FOOT REDNESS); denies: bruises, change in color, change in hair/nails, dryness, laceration, lesions, lumps, rash, wounds Allergic/Immunocompromised: denies: Difficulty Healing, Frequent Infections, Hives, Itching, others Hematologic/Lymphatic: denies: anemia, blood clots, easy bleeding, easy bruising, swollen glands, others Endocrine: denies: excessive hunger, excessive sweating, excessive thirst, excessive urination, flushing, intolerance to cold, intolerance to heat, unexplained weight gain, unexplained weight loss, others Psychiatric: denies: anxiety, bipolar disorder, depression, hopeless, panic di sorder, schizophrenia, sleepless, suicidal, others All Other Systems: Reviewed and Negative Physical Exam General Appearance: No Apparent Distress, Normal, Other (ANXIOUS ) HEENT: Normal ENT Inspection, PERRL/EOMI, Pharynx Normal, TMs Normal Neck: Full Range of Motion, Non-Tender, Normal, Normal Inspection Respiratory: Chest Non-Tender, Lungs Clear, No Accessory Muscle Use, No Respiratory Distress, Normal Breath Sounds Cardiovascular: No Edema, No JVD, No Murmur, No Gallop, Normal Peripheral Pulses, Regular Rate/Rhythm Breast Exam: Deferred Gastrointestinal: No Organomegaly, Non Tender, No Pulsatile Mass, Normal Bowel Sounds, Soft Genitalia: Deferred Pelvic: Deferred Rectal: Deferred Extremities: Leg edema, No calf tenderness, Normal capillary refill, Normal range of motion, No pedal edema (2+ PEDAL EDEMA NOTED TO BILATERAL LOWER LEGS AND FEET), Pedal edema, Swelling (BILATERAL LOW LEGS FRON THIGHS TO ANKLE AND FOOT, NO ERYTHEMA AND OPEN WOUNDS, NO DVT SIGHS. ) Musculoskeletal : Apperance: Normal Neurologic: Alert, director of pulmonary unit II-XII nml as Tested, No Motor Deficits, Normal Affect, Normal Mood, No Sensory Deficits Cerebellar Function: Normal Reflexes: Normal Skin: Dry, Normal Color, Warm Peripheral Pulses: 2+ carotid (R), 2+ carotid (L), 2+ dorsalis pedis (R), 2+ dorsalis pedis (L) Lymphatic: No Adenopathy Was a procedure done? Was a procedure done?: No Differential Diagnosis EXT Differential Diagnosis: Cellulitis, CHF, DJD, Strain, Other (CKF) X-Ray, Labs, Meds, VS Vital Signs Date Time Temp Pulse Resp B/P (MAP) Pulse Ox O2 Delivery O2 Flow Rate FiO2 05/15/24 09:13 98.7 103 16 115/85 (95) 96 98.7 05/15/24 08:18 98.7 103 16 115/85 (95) 96 Lab Test 05/15/24 08:43 05/15/24 08:17 05/15/24 00:00 Range/Units White Blood Count 12.7 #H 4.4-10.8 10^3/uL Red Blood Count 3.25 L 4.0-5.20 10^6/uL Hemoglobin 8.5 L 12.2-16.2 g/dL Hematocrit 26.9 #L 36.0-46.0 % Mean Corpuscular Volume 82.6 80.0-100.0 fL Mean Corpuscular Hemoglobin 26.1 L 28.0-32.0 pg Mean Corpuscular Hemoglobin Concent 31.6 L 32.0-36.0 g/dL Red Cell Distribution Width 15.4 H 11.8-14.3 % Platelet Count 255 140-450 10^3/uL Mean Platelet Volume 8.9 6.9-10.8 fL Neutrophils (%) (Auto) 83.1 H 37.0-80.0 % Lymphocytes (%) (Auto) 11.8 10.0-50.0 % Monocytes (%) (Auto) 4.3 0.0-12.0 % Eosinophils (%) (Auto) 0.3 0.0-7.0 % Basophils (%) (Auto) 0.5 0.0-2.0 % Neutrophils # (Auto) 10.5 H 1.6-8.6 10 ^3/uL Lymphocytes # (Auto) 1.5 0.4-5.4 10 ^3/uL Monocytes # (Auto) 0.5 0-1.3 10 ^3/uL Eosinophils # (Auto) 0 0-0.8 10 ^3/uL Basophils # (Auto) 0.1 0-0.2 10 ^3/uL Nucleated Red Blood Cells 0.1 % Sodium Level 137 136-145 mmol/L Potassium Level 3.2 L 3.5-5.1 mmol/L Chloride Level 100 98-107 mmol/L Carbon Dioxide Level 27 20-31 mmol/L Anion Gap 10 5-15 Blood Urea Nitrogen 18 9-23 mg/dL Creatinine 2.07 H 0.550-1.02 mg/dL Glomerular Filtration Rate Calc 31 >90 mL/min BUN/Creatinine Ratio 8.7 L 10.0-20.0 Serum Glucose 389 H 74-106 mg/dL Lactic Acid Level 1.2 0.4-2.0 mmol/L Calcium Level 8.9 8.7-10.4 mg/dL B-Type Natriuretic Peptide 113.46 0-100 pg/mL POC Glucose 359 H 70-106 mg/dl SARS-CoV-2 Antigen (Rapid) Negative NEGATIVE CHEST RADIOGRAPH Indication: LEGS SWELLING Technique: Single frontal view of the chest was obtained COMPARISON: XY CHEST PORTABLE on DOS: 05/12/24, XY CHEST PORTABLE on DOS: 05/10/24, XY CHEST PORTABLE on DOS: 05/10/24, XY CHEST PORTABLE on DOS: 05/09/24, XY CHEST PORTABLE on DOS: 05/08/24 FINDINGS: Lines and Tubes: None Lungs: Multifocal airspace disease. Pleura: No effusion. No pneumothorax. Cardiomediastinal contours: Unremarkable Bones: Unremarkable IMPRESSION: Multifocal airspace disease, improved since 05/12/2024 ATED BY: ABDIRAHMAN DEAL MD DICTATED DATE/TIME: 05/15/24919 SIGNED BY: ABDIRAHMAN DEAL MD SIGNED DATE/TIME: 05/15/24919 CC: X-Ray, Labs, Meds, VS Comment EXTERNAL MEDICAL RECORDS REVIEWED: [NONE] INDEPENDENT HISTORIANS: [NONE] SOCIAL DETERMINANTS OF HEALTH: [NONE] LABS ORDERED: CBC, BMP, BNP, LACTIC ACID W/REFLEX, BLOOD CULTURE, UA, URINE REVIEWED AND INTERPRETED RESULTS: WBC 12.7, K 3.2, CREA2 2.07, GLUC 389 IMAGING ORDERED: XR CHEST TREATMENTS ORDERED: NS 1 L IV, ROCEPHIN 1 G IV, INSULIN 5 UNITS IV, POTASSIUM 50 MEQ P.O., AZITHROMYCIN 250 MG IV, LASIX 20MG IV, PATIENT DECLINED ANY TREATMENT HERE IN THE ED AND STATED SHE WANTED TO SIGN OUT AMA. PROCEDURES PERFORMED: NONE CRITICAL CARE TIME: NONE I HAVE DISCUSSED THE PATIENT WITH THE ATTENDING PHYSICIAN DR. JUNG AND HE AGREES WITH THE PATIENT'S PLAN OF CARE. I HAVE INFORMED THE PATIENT THAT SINCE HER CHEST X-RAY REVEALS MULTIFOCAL PNEUMONIA AND SINCE HER LABS APPEAR TO REVEALED NEPHROTIC SYNDROME, I WOULD LIKE TO ADMIT HER FOR FURTHER TREATMENT, BUT THE PATIENT STATED SHE DID NOT WANT TO STAY AND BE ADMITTED AND WOULD LIKE TO LEAVE. PATIENT ALSO DECLINED TO HAVE ANY OF THE TREATMENTS I ORDERED DONE HERE IN THE ED. PATIENT WAS INFORMED OF THE RISKS AND CONSEQUENCES ASSOCIATED WITH SIGNING OUT AMA AND SHE STILL INSISTED ON LEAVING AND UNDERSTANDS THE RISKS DISCUSSED WITH HER. PATIENT SIGNED OUT AMA. Images Reviewed?: Images reviewed and evaluated by me Time of 1ST Reevaluation: 11:30 Reevaluation 1ST: Unchanged Patient Education/Counseling: Diagnosis, Treatment Family Education/Counseling: Diagnosis, Treatment Departure 1 Departure Time of Disposition: 11:30 Impression: Primary Impression: Multifocal pneumonia Additional Impressions: Nephrotic syndrome Chronic kidney failure Qualified Codes: N18.32 - Chronic kidney disease, stage 3b Disposition: LEFT AGAINST MEDICAL ADVICE Condition: Fair Critical Care Note Critical Care Time?: No Stability Stability form required: No I personally scribed for BRAYAN ROBLERO ([email or web address]) on 05/15/24 at 09:18. Electronically submitted by Dane Staples ([email or web address]). I personally scribed for BRAYAN ROBLERO ([email or web address]) on 05/15/24 at 09:18. Electronically submitted by Dane Staples ([email or web address]). I personally scribed for BRAYAN ROBLERO ([email or web address]) on 05/15/24 at 11:22. Electronically submitted by Dane Staples ([email or web address]). I personally scribed for BRAYAN ROBLERO ([email or web address]) on 05/15/24 at 13:05. Electronically submitted by Dane Staples ([email or web address]). BRAYAN ROBLERO May 15, 2024 09:18
--- NOTE | 2024-05-15 09:25 | DVH ---
CHEST RADIOGRAPH Indication: LEGS SWELLING Technique: Single frontal view of the chest was obtained COMPARISON: XY CHEST PORTABLE on DOS: 05/12/24, XY CHEST PORTABLE on DOS: 05/10/24, XY CHEST PORTABLE o n DOS: 05/10/24, XY CHEST PORTABLE on DOS: 05/09/24, XY CHEST PORTABLE on DOS: 05/08/24 FINDINGS: Lines and Tubes: None Lungs: Multifocal airspace disease. Pleura: No effusion. No pneumothorax. Cardiomediastinal contours: Unremarkable Bones: Unremarkable IMPRESSION: Multifocal airspace disease, improved since 05/12/2024
[2024-05-15 09:45] LABS: Basophils # (auto) 0.1 10 ^3/uL (0-0.2); Chloride 100 mmol/L (98-107); Eosinophils # (auto) 0 10 ^3/uL (0-0.8); Eosinophils % (auto) 0.3 % (0.0-7.0); Hemoglobin 8.5 g/dL (12.2-16.2); Lymphocytes # (auto) 1.5 10 ^3/uL (0.4-5.4); Monocytes # (auto) 0.5 10 ^3/uL (0-1.3); Monocytes % (auto) 4.3 % (0.0-12.0); Red Cell Distribution Width 15.4 % (11.8-14.3); Sodium 137 mmol/L (136-145); White Blood Cell 12.7 10^3/uL (4.4-10.8)
[2024-05-15 09:46] LABS: Anion Gap 10 (5-15); Calcium 8.9 mg/dL (8.7-10.4); Carbon Dioxide 27 mmol/L (20-31)
[2024-05-15 09:47] LABS: Basophils % (auto) 0.5 % (0.0-2.0); Hematocrit 26.9 % (36.0-46.0); Lymphocytes % (auto) 11.8 % (10.0-50.0); Mean Corpuscular Hemoglobin 26.1 pg (28.0-32.0); Mean Corpuscular Hgb Conc. 31.6 g/dL (32.0-36.0); Mean Corpuscular Volume 82.6 fL (80.0-100.0); Neutrophils # (auto) 10.5 10 ^3/uL (1.6-8.6); Neutrophils % (auto) 83.1 % (37.0-80.0); Nucleated Red Blood Cells % 0.1 %; Platelet Count (auto) 255 10^3/uL (140-450); Red Blood Cells 3.25 10^6/uL (4.0-5.20)
[2024-05-15 09:51] LABS: BUN/Creatinine Ratio 8.7 (10.0-20.0); Blood Urea Nitrogen 18 mg/dL (9-23)
[2024-05-15] MEDS ORDERED: cefTRIAXone 1GM/50ML D5W 50 ML IV ONE (10:00)
[2024-05-15] MEDS ORDERED: AZITHROMYCIN 500MG/ 250ML 250 ML IV ONE (10:00)
[2024-05-15 10:24] LABS: Glucose 389 mg/dL (74-106); Potassium 3.2 mmol/L (3.5-5.1)
[2024-05-15 10:51] LABS: COVID19 ANTIGEN SOFIA FIA NEGATIVE (NEGATIVE)
[2024-05-15] MEDS ORDERED: SODIUM CHLORIDE 0.9% 1,000 ML IV ONE (11:15)
[2024-05-15] MEDS ORDERED: InsuLIN REG 1unit/0.01ml Soln (100units/ml) IV ONE (11:15)
[2024-05-15] MEDS: POTASSIUM EFFERVESENT TAB 25 MEQ PO ONE (11:15)
== END 2024-05-15 11:18 | disposition left against medical advice (07) ==
LOC: ER 08:03
DX: J18.9 Pneumonia, unspecified organism (principal); N04.9 Nephrotic syndrome with unspecified morphologic changes; E11.9 Type 2 diabetes mellitus without complications; F15.90 Other stimulant use, unspecified, uncomplicated; Z20.822 Contact with and (suspected) exposure to COVID-19
CPT/HCPCS: 36415; 71045; 80048; 82962; 83605; 83880; 85025; 87040; 87426; 99284; J0696; J1815